=== PATIENT | male | born 1955 | race Caucasian/White ===

== ENCOUNTER 2018-08-18 22:28 | Inpatient (IN) | payer OTHER ==
[~2018-08-18] VITALS: Ht 170.2 cm; Wt 90.7 kg
--- NOTE | 2018-08-18 23:00 | NUR ---
REPORT RECEIVED FROM [facility] NURSE ROBB UGALDE. PT IN STABLE CONDITION. AAOX4. PT HAD CONTINUOUS CHEST PAIN THAT STARTED LAST NIGHT FOLLOWED BY NAUSEA AND SOB. PT HAS A HX OF MYOCARDIAL INFARCTION 5 YEARS AGO, HTN, DM, HYPERLIPIDEMIA, DEPRESSION. PT HAD AN EKG DONE AT [facility]. TROPONIN WAS NEGATIVE. PT RUNS BRADYCARDIA BETWEEN 45-55. PT IS ON ROOM AIR. PT HAS A R AC 20G SL THAT IS PATENT AND INTACT. PT ALSO HAD FLU VACCINATION DURING HIS [facility] VISIT. ALLERGIC TO PENICILLIN. PT RECEIVED ATIVAN AT 2214.
[2018-08-19] VITALS: BP 124/63
--- NOTE | 2018-08-19 | NUR ---
REPORT RECEIVED FROM [facility] AT BEDSIDE. PT IN STABLE CONDITION. AAOX4. INTRODUCED SELF TO PT. BOARD UPDATED. IV SITE R AC 20G SL PATENT AND INTACT. SKIN WARM, DRY, AND INTACT WITH NO OPEN WOUNDS. NO COMPLAINTS OF SOB. NO COMPLAINTS OF PAIN. PT AMBULATORY. BED LOCKED IN LOW POSITION. CALL GAMBOA WITHIN REACH. SAFETY MEASURES IN PLACE. PT HAD RECEIVED MORPHINE, ZOFRAN, AND ATIVAN FROM [facility].
[2018-08-19] MEDS ORDERED: INSULIN LISPRO SLIDING SCALE 100 UNITS/ML VIAL SUBQ PRN (00:15)
[2018-08-19] MEDS ORDERED: DEXTROSE 50% 50 ML SYR IVP PRN (00:15)
[2018-08-19] MEDS ORDERED: ACETAMINOPHEN 325 MG TAB PO PRN (00:15)
[2018-08-19] MEDS ORDERED: ONDANSETRON 4 MG/2 ML VIAL IVP PRN (00:15)
[2018-08-19] MEDS ORDERED: CARV3.12 PO (01:09)
[2018-08-19] MEDS ORDERED: LOVA40TA4 PO (01:09)
[2018-08-19] MEDS ORDERED: METF500T PO (01:09)
[2018-08-19] MEDS ORDERED: ATI.5 PO (01:09)
[2018-08-19] MEDS ORDERED: LORA10TA19 PO (01:09)
[2018-08-19] MEDS ORDERED: NITR0.4T2 SL (01:12)
[2018-08-19] MEDS ORDERED: LORATADINE 10 MG TAB PO PRN (01:25)
[2018-08-19] MEDS ORDERED: LORazepam 0.5 MG TAB PO PRN (01:25)
--- NOTE | 2018-08-19 02:30 | NUR ---
PT SLEEPING COMFORTABLY IN BED. NO S/S OF DISTRESS NOTED. NO PAIN. NO SOB. WILL CONTINUE TO MONITOR.
[2018-08-19 04:00] VITALS: BP 108/57
--- NOTE | 2018-08-19 05:00 | NUR ---
PT SLEEPING COMFORTABLY. NO S/S OF DISTRESS NOTED.
[2018-08-19] MEDS: BLOOD GLUCOSE MONITORING 1 DEV DEV FS SCH ×4 (06:53→20:25)
--- NOTE | 2018-08-19 06:53 | NUR ---
BS 91. NO INSULIN COVERAGE NEEDED.
--- NOTE | 2018-08-19 07:05 | NUR ---
REPORT GIVEN TO AM NURSE AT BEDSIDE. PT IN STABLE CONDITION.
--- NOTE | 2018-08-19 07:06 | NUR ---
RECEIVED REPORT FROM NIGHT NURSE. PT SITTING UP IN BED, RESTING COMFORTABLY. SAFETY MEASURE IN PLACE. WILL CONTINUE TO MONITOR.
--- NOTE | 2018-08-19 07:07 | NUR ---
PT SITTING UP IN BED. RESPIRATIONS EVEN AND UNLABORED. SKIN INTACT. LUNGS CTA BILATERAL. DENIES ANY CHEST PAIN AT THIS TIME. IV SITE INTACT, PATENT, ON SALINE LOCK. REVIEWED PLAN OF CARE WITH PT, PT UNDERSTANDS REVIEW. CALL LIGHT AT BEDSIDE. SAFETY MEASURES IN PLACE. WILL CONTINUE TO MONITOR.
[2018-08-19 07:30] LABS: ANION GAP 8.5 (8-16); CARBON DIOXIDE 33.2 mmol/L (21-32); CREATININE 1.1 mg/dL (0.7-1.3); POTASSIUM 3.7 mmol/L (3.5-5.1)
[2018-08-19 07:37] LABS: BASOPHILS % (AUTO) 0.6 % (0.0-2.0); EOSINOPHILS # (AUTO) 0.2 K/uL (0-0.4); EOSINOPHILS % (AUTO) 2.7 % (0.0-4.0); HEMATOCRIT 37.5 % (36-52); HEMOGLOBIN 12.6 g/dL (12.0-18.0); LYMPHOCYTES # (AUTO) 2.3 K/uL (2.0-11.5); LYMPHOCYTES % (AUTO) 30.2 % (20.5-51.1); MEAN CORPUSCULAR HEMOGLOBIN 28 pg (27-31); MEAN CORPUSCULAR HGB CONC 34 g/dL (33-37); MEAN CORPUSCULAR VOLUME 83.5 fL (80-94); MONOCYTES # (AUTO) 0.6 K/uL (0.8-1.0); MONOCYTES % (AUTO) 7.5 % (1.7-9.3); NEUTROPHILS # (AUTO) 4.5 K/uL (1.8-7.7); PLATELET COUNT (AUTO) 220 K/uL (140-450); RED BLOOD CELL COUNT(AUTO) 4.49 MIL/uL (4.20-6.10); RED CELL DISTRIBUTION WIDTH 13.3 % (11.6-13.7); WHITE BLOOD COUNT (AUTO) 7.7 K/uL (4.8-10.8)
[2018-08-19 08:00] VITALS: BP 132/70
[2018-08-19] MEDS: CARVEDILOL 3.125 MG TAB PO SCH ×2 (09:00→20:25)
[2018-08-19] MEDS: metFORMIN 500 MG TAB PO SCH (09:21)
[2018-08-19] MEDS: ECOTRIN 81 MG TABEC PO SCH (09:22)
--- NOTE | 2018-08-19 09:25 | NUR ---
PT LYING IN BED. ISSUED SCHEDULED MEDICATIONS. PT DENIES ANY PAIN AT THIS TIME. WILL CONTINUE TO MONITOR.
--- NOTE | 2018-08-19 11:30 | NUR ---
PATIENT LYING DOWN IN BED SLEEPING, AROUSABLE BY VOICE. NO DISTRESS NOTED. CONDITION UNCHANGED. WILL CONTINUE TO MONITOR.
[2018-08-19 12:22] VITALS: BP 126/68
--- NOTE | 2018-08-19 13:50 | NUR ---
PATIENT SITTING IN BED ON HIS PHONE. CONDITION UNCHANGED. DENIES ANY PAIN. WILL CONTINUE TO MONITOR.
--- NOTE | 2018-08-19 14:30 | NUR ---
DR. MUNIZ AT BEDSIDE REVIEWING PLAN OF CARE WITH PATIENT. WILL CONTINUE TO MONITOR.
[2018-08-19 16:00] VITALS: BP 120/66
[2018-08-19] MEDS: ISOSORBIDE MONONITRATE 30 MG TABER PO SCH (17:53)
--- NOTE | 2018-08-19 17:54 | NUR ---
PT SITTING IN BED EATING DINNER. SCHEDULED MEDICATION GIVEN. PT DENIES ANY PAIN AT THIS TIME. WILL CONTINUE TO MONITOR.
[2018-08-19] MEDS ORDERED: ISOSORBIDE MONONITRATE 30 MG TABER PO ONE (18:00)
--- NOTE | 2018-08-19 18:30 | NUR ---
PATIENT USED BATHROOM AND BACK TO BED. NO DISTRESS NOTED. CONDITION UNCHANGED. WILL CONTINUE TO MONITOR.
--- NOTE | 2018-08-19 19:20 | NUR ---
GAVE PT REPORT TO NIGHT NURSE. PT IN STABLE POSITION.
--- NOTE | 2018-08-19 19:21 | NUR ---
RECEIVED REPORT FROM [facility] NURSE JOSE-RN AT BEDSIDE. PT RESTING IN BED. AOX4, AMBULATORY, ON ROOM AIR WITH IV SITE ON RIGHT AC #20G-SL. SKIN INTACT. DISCUSSED PLAN OF CARE AND PT VERBALIZED UNDERSTANDING. NO S/S OF RESPIRATORY DISTRESS OR DISCOMFORT NOTED AT THIS TIME. BED IN LOWEST POSITION, BED BREAKS ON AND BOTH SIDE RAILS UP. BED SIDE TABLE AND CALL LIGHT ARE WITHIN REACH. NO S/S OF RESPIRATORY DISTRESS OR DISCOMFORT NOTED AT THIS TIME. WILL CONTINUE TO MONITOR.
[2018-08-19 20:00] VITALS: BP 108/54
--- NOTE | 2018-08-19 20:00 | NUR ---
VITAL SIGNS TAKEN AND TOLERATED WELL. NO S/S OF RESPIRATORY DISTRESS OR DISCOMFORT NOTED AT THIS TIME. WILL CONTINUE TO MONITOR.
--- NOTE | 2018-08-19 20:00 | NUR ---
BLOOD GLUCOSE 116- NO INSULIN COVERAGE NEEDED.
--- NOTE | 2018-08-19 21:00 | NUR ---
SCHEDULED MEDICATION NOT GIVEN FOR DECREASED B/P. PT AWARE AND AGREED. NO S/S OF RESPIRATORY DISTRESS OR DISCOMFORT NOTED AT THIS TIME. WILL CONTINUE TO MONITOR.
--- NOTE | 2018-08-19 22:00 | NUR ---
PT SLEEPING AT THIS TIME. NO S/S OF RESPIRATORY DISTRESS OR DISCOMFORT NOTED AT THIS TIME. WILL CONTINUE TO MONITOR.
[2018-08-20] VITALS: BP 99/46
--- NOTE | 2018-08-20 | NUR ---
VITAL SIGNS TAKEN AND TOLERATED WELL. LOW B/P NOTED. NO S/S OF RESPIRATORY DISTRESS OR DISCOMFORT NOTED AT THIS TIME. WILL CONTINUE TO MONITOR.
--- NOTE | 2018-08-20 02:00 | NUR ---
PT CONTINUE TO SLEEP. NO S/S OF RESPIRATORY DISTRESS OR DISCOMFORT NOTED AT THIS TIME. WILL CONTINUE TO MONITOR.
[2018-08-20 04:00] VITALS: BP 100/49
--- NOTE | 2018-08-20 04:00 | NUR ---
VITAL SIGNS TAKEN AND TOLERATED WELL. NO S/S OF RESPIRATORY DISTRESS OR DISCOMFORT NOTED AT THIS TIME. WILL CONTINUE TO MONITOR.
--- NOTE | 2018-08-20 06:00 | NUR ---
PT CONTINUES TO SLEEP. NO S/S OF RESPIRATORY DISTRESS OR DISCOMFORT NOTED AT THIS TIME. WILL CONTINUE TO MONITOR.
--- NOTE | 2018-08-20 07:16 | NUR ---
PT CONTINUES TO SLEEP. NO S/S OF RESPIRATORY DISTRESS OR DISCOMFORT NOTED AT THIS TIME. WILL CONTINUE TO MONITOR.
[2018-08-20] MEDS: BLOOD GLUCOSE MONITORING 1 DEV DEV FS SCH ×4 (07:20→20:33)
--- NOTE | 2018-08-20 07:20 | NUR ---
BLOOD GLUCOSE 108- NO INSULIN COVERAGE NEEDED
--- NOTE | 2018-08-20 07:30 | NUR ---
RECEIVED PT ON BED AAOX4. NO SOB NOTED. NO C/O PAIN AT THIS TIME. IV TO RT AC HAND PATENT AND INTACT. CHEST DIMINISHED AIR ENTRY TO THE BASES OTHERWISE CLEAR. ABDOMEN SOFT, BOWEL SOUNDS PRESENT. NO EDEMA NOTED. INSTRUCTED PT TO CALL FOR ASSISTANCE, CALL LIGHT WITHIN REACH. PT VERBALIZED UNDERSTANDING.
[2018-08-20 08:20] VITALS: BP 112/73
[2018-08-20] MEDS ORDERED: AMLO5TAB PO (08:29)
[2018-08-20] MEDS ORDERED: ASPI81CT89 PO (08:29)
[2018-08-20] MEDS ORDERED: ISOS30TE35 PO (08:29)
--- NOTE | 2018-08-20 08:37 | NUR ---
PATIENT HAS BEEN SCREENED AND CATEGORIZED HIGH NUTRITION RISK. PATIENT WILL BE SEEN WITHIN 1-2 DAYS OF ADMISSION. 08/20/[address]
[2018-08-20 08:39] LABS: CHOL/HDL RATIO 4.7 (1-4.5)
[2018-08-20] MEDS: ECOTRIN 81 MG TABEC PO SCH (09:05)
[2018-08-20] MEDS: metFORMIN 500 MG TAB PO SCH (09:06)
[2018-08-20] MEDS: CARVEDILOL 3.125 MG TAB PO SCH ×2 (09:07→20:33)
--- NOTE | 2018-08-20 09:20 | NUR ---
URINE SPECIMEN COLLECTED AND SENT TO LAB FOR UDS.
[2018-08-20] MEDS: HYDROcodone/APAP 5/325 MG 1 TAB TAB PO PRN ×2 (11:38→17:51)
[2018-08-20 12:00] VITALS: BP 123/57
[2018-08-20] MEDS ORDERED: amLODIPine 5 MG TAB PO SCH ×3 (12:00→12:48)
--- NOTE | 2018-08-20 14:10 | NUR ---
08/20/18 RD INITIAL ASSESSMENT COMPLETED PLEASE REFER TO NUTRITION ASSESSMENT UNDER CARE ACTIVITY FOR ESTIMATED NUTRITIONAL NEEDS. 1. CONTINUE CARDIAC AND CCHO 60 GM DIET TOLERATED 2. RD PROVIDED NUTRITION EDUCATION ON CARDIAC DIET 3. RD TO FOLLOW-UP 5-7 DAYS, LOW RISK [address]ITY [address] RD
[2018-08-20 15:02] LABS: BARBITURATE, URINE NEG. ng/ml (NEG <=200); BENZODIAZEPINE, URINE NEG. ng/mL (NEG <=200); CANNABINOID, URINE NEG. ng/mL (NEG <=50); COCAINE, URINE NEG. ng/mL (NEG <=300); OPIATE, URINE NEG. ng/mL (NEG <=2000); PHENCYCLIDINE SCREEN,URINE NEG. ng/mL (NEG <=25)
--- NOTE | 2018-08-20 15:15 | NUR ---
PT AWAKE. NO SOB NOTED. NO C/O PAIN AT THIS TIME. ENDORSED TO ADALBERTO-RN FOR CONTINUITY OF CARE.
--- NOTE | 2018-08-20 15:16 | NUR ---
RECEIVED BEDSIDE REPORT FROM TRAM OBREGON. PATIENT IS AWAKE, ALERT AND ORIENTEDX4. NO SIGNS OF DISTRESS ON RA. NO COMPLAINTS OF PAIN AT THIS TIME. IV ON R AC 20 SALINE LOCK. CLEAN, DRY AND INTACT. PATIENT AMBULATES. BED IN LOW POSITION. CALL LIGHT WITHIN REACH. WILL CONTINUE TO MONITOR THE PATIENT.
--- NOTE | 2018-08-20 15:26 | NUR ---
ADMISSION CHART REVIEW DONE INITIAL REVIEW FAXED TO [facility] [phone] PHONE TRE [phone]
[2018-08-20 15:30] VITALS: BP 119/72
[2018-08-20] MEDS: ISOSORBIDE MONONITRATE 30 MG TABER PO SCH (17:51)
--- NOTE | 2018-08-20 17:52 | NUR ---
ADMINISTERED ORDERED MEDS AND PRN PAIN MEDS. PATIENT TOLERATED WELL, NO SIGNS OF DISTRESS. BED IN LOW POSITION. CALL LIGHT WITHIN REACH, WILL CONTINUE TO MONITOR
--- NOTE | 2018-08-20 19:05 | NUR ---
GAVE BEDSIDE REPORT TO OIL BURNER REPAIRER NURSE. PATIENT ENDORSED IN STABLE CONDITION
--- NOTE | 2018-08-20 19:10 | NUR ---
RECEIVED PT AWAKE, TOLERABLE PAIN AT THIS TIME, WILL GIVE PRN MEDICATION WHEN DUE, VITAL SIGNS STABLE, SINUS RHYTHM ON TELE, PLAN OF CARE DISCUSS, SAFETY MEASURES IN PLACE, CALL LIGHT WITHIN REACH.
[2018-08-20 20:00] VITALS: BP 133/65
[2018-08-20] MEDS: NITROGLYCERIN 0.4 MG TAB SL PRN ×2 (20:49→20:56)
--- NOTE | 2018-08-20 20:50 | NUR ---
DR MUNIZ IS HERE, PT COMPLAINING OF CHEST PAIN 06/[address] MUNIZ WAS TALKING TO HIM, DR MUNIZ STATED TO GIVE NITRO SL NOW, BP-119/72, HR-71, NITRO SL GIVEN, MONITORED CLOSELY.
--- NOTE | 2018-08-20 20:56 | NUR ---
STILL WITH CHEST PAIN 06/15, 2ND DOSE OF NITRO SL GIVEN, BP-107/55, HR-71, STAT EKG DONE BY RT, EKG WITH NORMAL SINUS RHYTHM READING, MONITORED CLOSELY. Addendum: 08/20/18 at 2137 by Rahul Sequeira RN BP-113/63, HR-66
--- NOTE | 2018-08-20 21:10 | NUR ---
PT STILL WITH CHEST PAIN 06/15, DR MUNIZ WITH ORDER FOR TORADOL IVP, BP-107/55, HR-71, TORADOL IVP GIVEN, MONITORED CLOSELY.
[2018-08-20] MEDS ORDERED: KETOROLAC 15 MG/ML VIAL ONE (21:13)
[2018-08-20] MEDS ORDERED: KETOROLAC 15 MG/ML VIAL IVP ONE (21:30)
--- NOTE | 2018-08-20 21:48 | NUR ---
CHEST PAIN 03/15 AT THIS TIME, PT DOESN'T WANT TO GO HOME TONIGHT DUE TO EPISODES OF CHEST PAIN, CALLED DR MUNIZ AND MADE AWARE, STATED BOYD FOR PT STAY TONIGHT AND ORDERED TORADOL PRN MEDICATION FOR CHEST PAIN, PT MADE AWARE AND VERBALIZED UNDERSTANDING.
[2018-08-20] MEDS ORDERED: KETOROLAC 30 MG/ML VIAL IVP PRN (21:50)
--- NOTE | 2018-08-21 | NUR ---
PT SLEEPING, EASILY AROUSABLE, VITAL SIGNS TAKEN, BP ON THE LOW SIDE BUT STABLE, DENIES ANY PAIN, CONTINUE TO MONITOR CLOSELY.
[2018-08-21 00:20] VITALS: BP 91/49
[2018-08-21 03:40] VITALS: BP 86/57
--- NOTE | 2018-08-21 03:40 | NUR ---
PT SLEEPING, EASILY AROUSABLE, VITAL SIGNS TAKEN, BP-86/57, HR-56, DENIES CHEST PAIN, PAGED DR THOMPSON WITH NEW ORDER, STARTED ON IVF OF NS AT 80ML/H ORDERED, MONITORED CLOSELY.
[2018-08-21] MEDS ORDERED: NACL 0.9% 1,000 ML IV SCH (04:00)
--- NOTE | 2018-08-21 06:20 | NUR ---
PT SITTING ON SIDE OF BED WATCHING MOVIES ON HIS LAPTOP, VITAL SIGNS RECHECKED:BP-113/77, HR-61, SAT-97%, DENIES ANY PAIN, NO SOB NOTED.
--- NOTE | 2018-08-21 07:10 | NUR ---
PT AWAKE, NO SIGNS OF DISTRESS, REPORT GIVEN TO RN SABAS FOR CONTINUITY OF CARE.
[2018-08-21] MEDS: BLOOD GLUCOSE MONITORING 1 DEV DEV FS SCH ×2 (07:34→12:23)
[2018-08-21 08:00] VITALS: BP 128/71
[2018-08-21] MEDS: CARVEDILOL 3.125 MG TAB PO SCH (09:00)
[2018-08-21] MEDS: ECOTRIN 81 MG TABEC PO SCH (09:29)
[2018-08-21] MEDS: metFORMIN 500 MG TAB PO SCH (09:29)
--- NOTE | 2018-08-21 09:35 | NUR ---
ECHO ON GOING AT THE BEDSIDE.
--- NOTE | 2018-08-21 12:00 | NUR ---
DISCHARGE INSTRUCTIONS AND PRESCRIPTIONS GIVEN TO PT WHICH VERBALIZED FULL UNDERSTANDING OF THE INSTRUCTIONS AND THE NEED TO FOLLOW UP WITH PCP AND SOCIAL WORKER IN 7 DAYS. ARM BANDS AND IV REMOVED, CANNULA TIP INTACT.
--- NOTE | 2018-08-21 12:03 | NUR ---
FAXED CONCURRENT REVIEW TO [facility] [phone] PHONE TRE [phone] Addendum: 08/21/18 at 1233 by Vania Gibson FAXED ALSO DISCHARGE SUMMARY AND HOSPITALIST NOTES AND DISCHARGE INSTRUCTIONS.
--- NOTE | 2018-08-21 12:20 | NUR ---
PT ESCORTED TO THE FRONT LOBBY IN STABLE CONDITION. AMBULATORY. NO COMPLAINTS MADE. PT IS D/C HOME WITH DAUGHTER.
== END 2018-08-21 12:20 | disposition home or self-care (01) | DRG 203 ==
LOC: MTU 08-19 00:05
PROVIDERS: ADMIT Internal Medicine; ATTEND Internal Medicine
DX: M94.0 Chondrocostal junction syndrome [Tietze] (principal); I11.9 Hypertensive heart disease without heart failure; E11.9 Type 2 diabetes mellitus without complications; R07.89 Other chest pain; I25.10 Atherosclerotic heart disease of native coronary artery without angina pectoris; I25.2 Old myocardial infarction; E78.5 Hyperlipidemia, unspecified; E66.9 Obesity, unspecified; Z68.31 Body mass index [BMI] 31.0-31.9, adult; Z90.49 Acquired absence of other specified parts of digestive tract; Z98.49 Cataract extraction status, unspecified eye; Z87.891 Personal history of nicotine dependence; Z88.0 Allergy status to penicillin; K21.9 Gastro-esophageal reflux disease without esophagitis; G47.33 Obstructive sleep apnea (adult) (pediatric); Z82.49 Family history of ischemic heart disease and other diseases of the circulatory system; T40.5X5A Adverse effect of cocaine, initial encounter; Y92.89 Other specified places as the place of occurrence of the external cause; I34.0 Nonrheumatic mitral (valve) insufficiency
CPT/HCPCS: 36415; 80048; 80305; 82948; 83036; 83880; 84484; 85025; 87081; 93005; 93308; J1815; J1885; J7030

== ENCOUNTER 2019-05-13 18:50 | Emergency (ER) | payer OTHER ==
[~2019-05-13] VITALS: Ht 175.3 cm; Wt 102.7 kg
[~2019-05-13 18:50] MED LIST: ASPI-1718 PO; ATI.5 PO; CARV3.12 PO; LORA10TA19 PO; LOVA40TA4 PO; METF500T PO; NITR0.4T2 SL
[2019-05-13 18:58] VITALS: BP 149/84
--- NOTE | 2019-05-13 19:15 | NUR ---
C/O LLQ ABD PAIN RADIATING TO THE LEFT LOWER BACK 7/10 AND DULL X4 DAYS ACCOMPANIED BY BLOATING, NAUSEA AND INTERMITTENT DIARRHEA. PT STATES HE TOOK PEPTO BISMOL WHICH PROVIDED MINIMAL RELIEF. DENIES FEVER, VOMITING AND LOSS OF APPETITE. BOWEL SOUNDS ACTIVE X4, LBM TODAY, NOT DIARRHEA, ABD SOFT/PUFFY AND TENDER TO PALPATION. PT REPORTS BEING TESTED FOR H.PYLORI BY HIS PCP BUT DOES NOT KNOW WHAT THE RESULT WAS. BED IN LOW POSITION, SIDE RAIL UP X1, PT PLACED IN GOWN. DR QUINN AT BEDSIDE EVALUATING PT.
--- NOTE | 2019-05-13 19:33 | NUR ---
PT RETURN FROM CT
[2019-05-13 19:34] LABS: BASOPHILS # (AUTO) 0.1 K/uL (0.00-0.22); BASOPHILS % (AUTO) 0.6 % (0.0-2.0); EOSINOPHILS # (AUTO) 0.3 K/uL (0-0.4); EOSINOPHILS % (AUTO) 3.2 % (0.0-4.0); HEMATOCRIT 39.7 % (36-52); HEMOGLOBIN 13.1 g/dL (12.0-18.0); LYMPHOCYTES # (AUTO) 2.8 K/uL (2.0-11.5); LYMPHOCYTES % (AUTO) 26.3 % (20.5-51.1); MEAN CORPUSCULAR HEMOGLOBIN 28 pg (27-31); MEAN CORPUSCULAR HGB CONC 33 g/dL (33-37); MONOCYTES # (AUTO) 0.9 K/uL (0.8-1.0); MONOCYTES % (AUTO) 8.2 % (1.7-9.3); NEUTROPHILS # (AUTO) 6.5 K/uL (1.8-7.7); NEUTROPHILS % (AUTO) 61.7 % (42.2-75.2); PLATELET COUNT (AUTO) 337 K/uL (140-450); RED BLOOD CELL COUNT(AUTO) 4.67 MIL/uL (4.20-6.10); RED CELL DISTRIBUTION WIDTH 13.5 % (11.6-13.7); WHITE BLOOD COUNT (AUTO) 10.5 K/uL (4.8-10.8)
[2019-05-13] MEDS ORDERED: KETOROLAC 15 MG/ML VIAL IM ONE (19:40)
[2019-05-13 19:41] LABS: APPEARANCE,URINE CLEAR (CLEAR); BILIRUBIN,URINE NEGATIVE (NEGATIVE); BLOOD, URINE 3+ (NEGATIVE); COLOR,URINE YELLOW (YELLOW); LEUKOCYTE ESTERASE ,URINE NEGATIVE (NEGATIVE); NITRITE, URINE NEGATIVE (NEGATIVE); UGLUCOSE NEGATIVE (NEGATIVE)
[2019-05-13] MEDS ORDERED: KETOROLAC 15 MG/ML VIAL ONE (19:50)
[2019-05-13 20:07] LABS: ANION GAP 12.4 (8-16); CARBON DIOXIDE 29.9 mmol/L (21-32); CREATININE 1.4 mg/dL (0.7-1.3); POTASSIUM 4.3 mmol/L (3.5-5.1)
[2019-05-13 20:12] LABS: ALBUMIN 3.7 g/dL (3.4-5.0); TOTAL BILIRUBIN 0.3 mg/dL (0.0-1.0)
[2019-05-13] MEDS ORDERED: metroNIDAZOLE 500 MG TAB PO ONE (20:20)
[2019-05-13] MEDS ORDERED: CIPROFLOXACIN 250 MG TAB PO ONE (20:20)
[2019-05-13 20:30] LABS: RBC,URINE 11-20 (MOD) /HPF (0-5); WBC,URINE 0-5 /HPF (0-5)
[2019-05-13 20:52] VITALS: BP 135/89
--- NOTE | 2019-05-13 20:52 | NUR ---
Patient discharged with v/s stable. Written and verbal after care instructions given and explained. Patient alert, oriented and verbalized understanding of instructions. Ambulatory with steady gait. All questions addressed prior to discharge. ID band removed. Patient advised to follow up with PMD. Rx of CIPRO & FLAGYL given. Patient educated on indication of medication including possible reaction and side effects. Opportunity to ask questions provided and answered.
== END 2019-05-13 20:52 | disposition home or self-care (01) ==
LOC: MED 18:50
DX: N17.9 Acute kidney failure, unspecified (principal); K57.92 Diverticulitis of intestine, part unspecified, without perforation or abscess without bleeding; E11.9 Type 2 diabetes mellitus without complications; I10 Essential (primary) hypertension; E78.5 Hyperlipidemia, unspecified; I25.2 Old myocardial infarction; Z98.890 Other specified postprocedural states; Z79.84 Long term (current) use of oral hypoglycemic drugs; Z79.899 Other long term (current) drug therapy; Z88.0 Allergy status to penicillin
CPT/HCPCS: 36415; 74176; 80053; 81001; 83690; 85025; 96372; 99284; J1885

== ENCOUNTER 2019-06-17 21:48 | Emergency (ER) | payer OTHER ==
[~2019-06-17] VITALS: Ht 175.3 cm; Wt 95.3 kg
[2019-06-17 21:52] VITALS: BP 150/83
--- NOTE | 2019-06-17 21:54 | NUR ---
TO LOBBY A/W BED AMBULATORY
--- NOTE | 2019-06-17 22:00 | NUR ---
PT AMBULATED TO BED
--- NOTE | 2019-06-17 22:20 | NUR ---
63/M PRESENTED TO ER. AMBULATORY. STEADY GAIT. C/O R SIDE TESTICULAR PAIN RADIATING TO GROIN AND LOWER BACK. 7/10 CONSTANT PRESSURE. SINCE 3 DAYS AGO. SAYS HAS SLIGHT PAIN WHEN URINATING. NO SWELLING. NO FEVER. NO CHILLS. STATES HAD DIARREA TODAY. 7 BOWEL MOVEMENTS. NO N/V. HX HTN, DM, HLD, CHOLECYSTECTOMY, DC 6 YEARS AGO, RESOLVED INTERMEDIATE SYPHILLIS. RX METFORMIN, NITRO, ASPIRIN, LIPITOR. WILL CONTINUE TO MONITOR.
--- NOTE | 2019-06-18 00:30 | NUR ---
PT SLEEPING IN GURNEY. EASILY AROUSABLE. NO COMPLAINTS AT THIS TIME. NO DISTRESS NOTED. MAKE NEEDS KNOWN. WILL KIYA DELUNA MONITOR
[2019-06-18] MEDS ORDERED: ACETAMINOPHEN 325 MG TAB PO ONE (00:50)
--- NOTE | 2019-06-18 02:30 | NUR ---
EVEN UNLABORED BREATHING NOTED. NO SIGNS OF DISTRESS. NO PAIN NOTED.
[2019-06-18 04:20] VITALS: BP 150/83
--- NOTE | 2019-06-18 04:20 | NUR ---
Patient discharged with v/s stable. Written and verbal after care instructions given and explained. Patient verbalized understanding. Ambulatory with steady gait. All questions addressed prior to discharge. Advised to follow up with PMD.
== END 2019-06-18 04:20 | disposition home or self-care (01) ==
LOC: MED 21:48
DX: R10.30 Lower abdominal pain, unspecified (principal); N50.811 Right testicular pain; I10 Essential (primary) hypertension; E11.9 Type 2 diabetes mellitus without complications; I25.2 Old myocardial infarction; E78.00 Pure hypercholesterolemia, unspecified; Z90.49 Acquired absence of other specified parts of digestive tract; Z79.84 Long term (current) use of oral hypoglycemic drugs; Z79.899 Other long term (current) drug therapy; Z79.82 Long term (current) use of aspirin; Z88.0 Allergy status to penicillin
CPT/HCPCS: 81002; 99283

== ENCOUNTER 2019-12-27 17:45 | Inpatient (IN) | payer OTHER ==
[~2019-12-27] VITALS: Ht 175.3 cm; Wt 101.6 kg
[~2019-12-27 17:45] MED LIST changes: -ASPI-1718 PO; +ASPI-1822 PO
[2019-12-27 17:58] VITALS: BP 150/71
--- NOTE | 2019-12-27 18:25 | NUR ---
PT AMB TO BED 7 WITH STEADY GAIT
--- NOTE | 2019-12-27 18:38 | NUR ---
64 Y/M PRESENTS TO ED WITH CHEST PRESSURE SINCE 3AM THIS MORNING, PT WAS AWOKEN FROM HIS SLEEP FROM CP THAT ALSO PRESENTED WITH R FACIAL NUMBNESS. PT REPORTS BLURRED VISION. PATIENT REPORTS PAIN CONSTANT PRESSURE 7/10. HAS HX OF AZ 8 YEARS AGO, STATES "THIS FEELS DIFFERENT, LAST TIME MY PAIN WAS SHARP. PT CO SOB. PT REPORTS HE HAS NOT TAKEN BP MEDICATIONS FOR 6 MONTHS "I DONT LIKE THE WAY THEY MAKE ME FEEL". DENIES ALVAREZ OR NAUSEA. RR EVEN AND UNLABORED, A&O X 4. HX- HYPERCHOLESTEROLEMIA, HTN, CM, [place] ALLERGIES- PENICILLIN RX- NITRO, METFORMIN, LIPITOR
--- NOTE | 2019-12-27 18:53 | NUR ---
PT AMBULATED TO BATHROOM WITH STEADY GAIT.
--- NOTE | 2019-12-27 18:53 | NUR ---
STAT LABS DRAWN AND URINE COLLECTED AND SENT TO LAB
[2019-12-27 19:07] LABS: BASOPHILS # (AUTO) 0.1 K/uL (0.00-0.22); BASOPHILS % (AUTO) 0.8 % (0.0-2.0); EOSINOPHILS # (AUTO) 0.4 K/uL (0-0.4); EOSINOPHILS % (AUTO) 3.7 % (0.0-4.0); HEMOGLOBIN 13.4 g/dL (12.0-18.0); LYMPHOCYTES # (AUTO) 3.8 K/uL (2.0-11.5); LYMPHOCYTES % (AUTO) 39.3 % (20.5-51.1); MEAN CORPUSCULAR HEMOGLOBIN 28 pg (27-31); MEAN CORPUSCULAR HGB CONC 34 g/dL (33-37); MEAN CORPUSCULAR VOLUME 82.8 fL (80-94); MONOCYTES # (AUTO) 0.7 K/uL (0.8-1.0); MONOCYTES % (AUTO) 7.8 % (1.7-9.3); NEUTROPHILS # (AUTO) 4.6 K/uL (1.8-7.7); NEUTROPHILS % (AUTO) 48.4 % (42.2-75.2); PLATELET COUNT (AUTO) 273 K/uL (140-450); RED BLOOD CELL COUNT(AUTO) 4.83 MIL/uL (4.20-6.10); RED CELL DISTRIBUTION WIDTH 13.2 % (11.6-13.7); WHITE BLOOD COUNT (AUTO) 9.6 K/uL (4.8-10.8)
--- NOTE | 2019-12-27 19:15 | NUR ---
XR AT BEDSIDE.
--- NOTE | 2019-12-27 19:20 | NUR ---
REPORT RECIVED FROM KATHLEEN UGALDE. PT ON MONITOR. VSS. PT AAO X 4. RESPIRATIONS ARE EVEN AND UNLABORED. PAIN HAS C/O 8/10 CHEST PAIN, UNPROVOKED. "PT STATES IT FEELS LIKE A PRESSURE." PT ADMITS TO HAVING NITRO AT HOME BUT DID NOT TAKE IT THIS TIME.
[2019-12-27 19:22] LABS: ALBUMIN 3.5 g/dL (3.4-5.0); ANION GAP 10.1 (8-16); CARBON DIOXIDE 30.7 mmol/L (21-32); CREATININE 1.2 mg/dL (0.6-1.3); POTASSIUM 3.8 mmol/L (3.5-5.1); TOTAL BILIRUBIN 0.3 mg/dL (0.0-1.0)
--- NOTE | 2019-12-27 19:22 | NUR ---
Pt report given to TRAM FRASER. Transfer of care at this time.
[2019-12-27] MEDS ORDERED: NITROGLYCERIN 0.4 MG TAB SL ONE (19:40)
[2019-12-27] MEDS ORDERED: ASPIRIN 325 MG TAB PO ONE (19:40)
--- NOTE | 2019-12-27 20:25 | NUR ---
ASA 325 MG AND NITRO 0.4 MG. GIVEN @ 1950. PT REASSESSED AND STATED THAT CHEST PAIN HAS REDUCED FROM 07/16 TO 5. PT RESPIRATIONS ARE EVEN AND UNLABORED. PT ON 2L/MIN NC. O2SAT @ 98%. PT AAO X 4. VSS. PT RESTING IN BED TLING ON THE PHONE WITH FAMILY.
[2019-12-27] MEDS ORDERED: DEXT 5% /NACL 0.9% 1,000 ML IV SCH (20:43)
[2019-12-27] MEDS ORDERED: ZOLPIDEM 5 MG TAB PO PRN (20:45)
[2019-12-27] MEDS ORDERED: ONDANSETRON 4 MG/2 ML VIAL IM/IVP PRN (20:45)
[2019-12-27] MEDS ORDERED: DOCUSATE SODIUM 100 MG GELCAP PO PRN (20:45)
[2019-12-27] MEDS ORDERED: HYDROcodone/APAP 7.5/325 MG 1 TAB PO PRN (20:45)
[2019-12-27] MEDS ORDERED: guaiFENesin DM 200/20 MG-10 ML 10 ML UDC PO PRN (20:45)
[2019-12-27] MEDS ORDERED: ACETAMINOPHEN 325 MG TAB PO PRN (20:45)
--- NOTE | 2019-12-27 21:00 | NUR ---
PT REASSESSED AND STATED THAT CHEST PAIN HAS REMAINED AT 5/10. PT STATES PAIN IS NON RADIATING AND FEELS LIKE A PRESSURE IN CHEST. PT RESPIRATIONS ARE EVEN AND UNLABORED. PT ON 2L/MIN NC. O2SAT @ 98%. PT AAO X 4. VSS. PT RESTING IN BED TALKING ON THE PHONE WITH FAMILY.
[2019-12-27 21:21] LABS: PROTHROMBIN TIME 9.1 secs (10.8-13.4)
--- NOTE | 2019-12-27 21:25 | NUR ---
Patient will be admitted to care of [facility]. Admited to [facility]. Will go to room 111B. Belongings list completed. Report to FARRUKH UGALDE.
[2019-12-27 21:30] VITALS: BP 110/60
--- NOTE | 2019-12-27 21:30 | NUR ---
RECIEVED PT FROM ER /[facility] , AAOX4 , W/ O2 INH.AT 2LPM/NC - 02 SAT WNL , C/O OF CHEST PAIN BUT BEARABLE AT THIS TIME HE SAID - JUST TOOK ASA AND NITRO AT THE ER , AMBULATES TO BED , IV SITE INTACT AND PATENT . ADMISSION ASSESSMENT DONE - MRSA SPECIMEN SENT TO LAB . POC DISCUISSED Addendum: 12/27/19 at 2329 by Shweta Barajas RN THE WORD DISCUISSED IN THE ABOVE NURSE'S NOTE IS TYPOGRAPHICALLY ERROR - INSTEAD OF DISCUSSED . Addendum: 12/27/19 at 2330 by Shweta Barajas RN PLAN OF CARE DISCUSSED AND VERBALIZE UNDERSTANDING - CALL LIGHT , URINAL WITHIN REACH , ON LITERACY COACH. PROVIDE SANDWICH AT BEDSIDE , WILL CONT. TO MONITOR.
[2019-12-27] MEDS ORDERED: INSULIN LISPRO SLIDING SCALE 100 UNITS/ML VIAL SUBQ PRN (22:55)
[2019-12-27] MEDS ORDERED: DEXTROSE 50% 50 ML SYR IVP PRN (22:55)
[2019-12-27] MEDS: CARVEDILOL 3.125 MG TAB PO SCH (22:55)
[2019-12-27] MEDS ORDERED: NITROGLYCERIN 0.4 MG TAB SL PRN (22:55)
[2019-12-27] MEDS ORDERED: KCL 20 MEQ/WATER INJ PREMIX 200 ML IV PRN (23:00)
[2019-12-27 23:32] LABS: APPEARANCE,URINE CLEAR (CLEAR); BILIRUBIN,URINE NEGATIVE (NEGATIVE); BLOOD, URINE 1+ (NEGATIVE); COLOR,URINE YELLOW (YELLOW); LEUKOCYTE ESTERASE ,URINE NEGATIVE (NEGATIVE); NITRITE, URINE NEGATIVE (NEGATIVE); UGLUCOSE NEGATIVE (NEGATIVE)
[2019-12-27] MEDS: NACL 0.9% 1,000 ML IV SCH (23:38)
[2019-12-27 23:46] LABS: BARBITURATE, URINE NEG. ng/ml (NEG <=200); BENZODIAZEPINE, URINE NEG. ng/mL (NEG <=200); CANNABINOID, URINE NEG. ng/mL (NEG <=50); COCAINE, URINE NEG. ng/mL (NEG <=300); OPIATE, URINE NEG. ng/mL (NEG <=2000); PHENCYCLIDINE SCREEN,URINE NEG. ng/mL (NEG <=25)
[2019-12-27 23:48] LABS: RBC,URINE 11-20 (MOD) /HPF (0-5); WBC,URINE 0-5 /HPF (0-5)
[2019-12-28] VITALS: BP 100/60
--- NOTE | 2019-12-28 00:05 | NUR ---
BP 100/60 , MD 61 - HOLD CARVEDILOL ORDERED BY BHANU .
--- NOTE | 2019-12-28 02:00 | NUR ---
MADE ROUNDS , NO S/S OF ACUTE DISTRESS NOTED AT THIS TIME , DENIES CHEST PAIN AT THIS TIME , WILL CONT. TO MONITOR - ON OPHTHALMIC PATHOLOGIST.CALL LIGHT WITHIN REACH.
[2019-12-28 04:00] VITALS: BP 105/60
--- NOTE | 2019-12-28 04:00 | NUR ---
MADE ROUNDS , RESTING ON BED COMFORTABLY , CARDIAC TRACING -SB 47 - DENIES ANY PAIN AT THIS TIME , BP 90/55 - HE SAID :'' I'M OK THAN I WAS . IVF INFUSING WELL - WILL CONT. TO MONITOR. CALL LIGHT WITHIN REACH.- WILL RE CHECK V/S.- CHARGE NURSE INFORMED.
[2019-12-28 05:53] LABS: ANION GAP 11.4 (8-16); CARBON DIOXIDE 25.7 mmol/L (21-32); CREATININE 1.1 mg/dL (0.6-1.3); POTASSIUM 4.1 mmol/L (3.5-5.1)
[2019-12-28] MEDS: BLOOD GLUCOSE MONITORING 1 DEV DEV FS SCH ×4 (06:10→20:17)
--- NOTE | 2019-12-28 06:15 | NUR ---
LATEST BP 90/60 , LATEST CARDIAC TRACING 50 -SB - COMFORTABLY RESTING ON BED , DENIES CHEST PAIN - VOIDED FREELY - INFORMED BHANU , WILL CONT. TO MONITOR - CALL LIGHT WITHIN REACH.
[2019-12-28 06:41] LABS: BASOPHILS # (AUTO) 0.1 K/uL (0.00-0.22); EOSINOPHILS # (AUTO) 0.3 K/uL (0-0.4); EOSINOPHILS % (AUTO) 4.7 % (0.0-4.0); HEMATOCRIT 36.7 % (36-52); HEMOGLOBIN 12.5 g/dL (12.0-18.0); LYMPHOCYTES # (AUTO) 2.4 K/uL (2.0-11.5); LYMPHOCYTES % (AUTO) 38.6 % (20.5-51.1); MEAN CORPUSCULAR HEMOGLOBIN 28 pg (27-31); MEAN CORPUSCULAR HGB CONC 34 g/dL (33-37); MONOCYTES # (AUTO) 0.5 K/uL (0.8-1.0); MONOCYTES % (AUTO) 7.4 % (1.7-9.3); NEUTROPHILS % (AUTO) 48.3 % (42.2-75.2); PLATELET COUNT (AUTO) 243 K/uL (140-450); RED BLOOD CELL COUNT(AUTO) 4.43 MIL/uL (4.20-6.10); RED CELL DISTRIBUTION WIDTH 13.4 % (11.6-13.7); WHITE BLOOD COUNT (AUTO) 6.3 K/uL (4.8-10.8)
--- NOTE | 2019-12-28 07:06 | NUR ---
PATIENT HAS BEEN SCREENED AND CATEGORIZED MODERATE NUTRITION RISK. PATIENT WILL BE SEEN WITHIN 3-5 DAYS OF ADMISSION. 12/30/19-01/01/20 MARIEL BRANCH MS, RDN
--- NOTE | 2019-12-28 07:15 | NUR ---
ENDORSED TO AM SHIFT FOR CONT. OF CARE - PT - STABLE CONDITION. Addendum: 12/28/19 at 0731 by Shweta Barajas RN ENDORSED TO JOSE DRUMMOND ABOUT U/A RESULT .
--- NOTE | 2019-12-28 07:16 | NUR ---
RECEIVED REPORT FROM NIGHT NURSE. PATIENT SITTING IN BED, AA&A x4. COOPERATIVE. RESPIRATIONS EVEN, UNLABORED, BREATHING TO ROOM AIR. NO CHEST PAIN NOTED. IV SITE CLEAN, DRY, AND INTACT INFUSING PER MD ORDERS. REVIEWED PLAN OF CARE WITH PATIENT, PATIENT VERBALIZED UNDERSTANDING. CALL LIGHT IN REACH, BED IN LOW POSITION. WILL CONTINUE TO MONITOR.
[2019-12-28 08:00] VITALS: BP 128/77
[2019-12-28 08:21] LABS: FREE T4 (FREE THYROXINE) 1.16 ng/dL (0.76-1.46); MAGNESIUM 2.1 mg/dL (1.8-2.4); PHOSPHORUS 3.3 mg/dL (2.5-4.9); THYROID STIMULATING HORMONE 1.86 uIU/mL (0.34-3.74)
[2019-12-28] MEDS: CARVEDILOL 3.125 MG TAB PO SCH ×2 (09:00→20:17)
[2019-12-28] MEDS ORDERED: metFORMIN 500 MG TAB PO SCH (09:00)
[2019-12-28] MEDS: ASPIRIN 81 MG TAB.CHEW PO SCH (09:15)
[2019-12-28] MEDS: ATORVASTATIN 20 MG TAB PO SCH (09:17)
[2019-12-28] MEDS: LISINOPRIL 5 MG TAB PO SCH (09:17)
--- NOTE | 2019-12-28 09:30 | NUR ---
SCHEDULED MEDS DUE GIVEN. WILL CONTINUE TO MONITOR.
[2019-12-28 09:31] LABS: CHOL/HDL RATIO 5.1 (1-4.5)
[2019-12-28] MEDS: PSEUDOEPHEDRINE 30 MG TAB PO PRN (13:27)
[2019-12-28] MEDS: NACL 0.9% 1,000 ML IV SCH (13:28)
--- NOTE | 2019-12-28 13:31 | NUR ---
PT COMPLAINS OF CONGESTION. SUDAFED GIVEN AT THIS TIME. WILL CONTINUE TO MONITOR.
[2019-12-28 15:28] VITALS: BP 127/71
[2019-12-28] MEDS: metFORMIN 500 MG TAB PO SCH (17:52)
--- NOTE | 2019-12-28 19:19 | NUR ---
GAVE REPORT TO MAINFRAME PROGRAMMER ANALYST NURSE. PATIENT IN STABLE CONDITION.
--- NOTE | 2019-12-28 19:30 | NUR ---
RECEIVED FROM AM RN IN BED AWAKE AND ALERT. NO SOB. NO COMPLAINTS OF CHEST PAIN OR ANY PAIN AT THIS TIME. CALL LIGHT WITH IN REACH. ENCOURAGED TO CALL FOR ANY HELP HE MAY NEED OR IF IN PAIN. WILL CONTINUE WITH CARE. ABLE TO VERBALIZE NEEDS WELL. TELEMETRY MONITORING. DX. OF CHEST.
[2019-12-28 20:20] VITALS: BP 117/80
--- NOTE | 2019-12-28 20:24 | NUR ---
PT. SITTING AT EDGE OF BED. ABLE TO VERBALIZE NEEDS WELL IN THAI. BLOOD SUGAR CHECK PER FINGERSTICK DONE AND BS WITH IN NORMAL LIMITS. ENCOURAGED TO REST AND BE READY TO SLEEP RT NIGHT TIME. "OK" RE-ORIENTED TO CALL LIGHT USE AND WITH IN REACH. TELEMETRY MONITORING.
--- NOTE | 2019-12-28 22:58 | NUR ---
PT. SLEEPING AT THIS TIME IN BED. NO RESTLESSNESS NOTED. TELEMETRY MONITORING.NSR ON MONITOR. NO ECTOPY NOTED. CALL LIGHT WITH IN REACH.
[2019-12-29] VITALS: BP 98/54
--- NOTE | 2019-12-29 01:42 | NUR ---
SLEEPING. TELEMETRY MONITORING HR 60-61 AT THIS TIME. NO RESTLESSNESS . CALL LIGHT WITH IN REACH.
[2019-12-29 04:07] VITALS: BP 101/60
[2019-12-29] MEDS: BLOOD GLUCOSE MONITORING 1 DEV DEV FS SCH (05:08)
[2019-12-29] MEDS: NACL 0.9% 1,000 ML IV SCH (05:09)
--- NOTE | 2019-12-29 05:10 | NUR ---
SLEEPING WELL THIS SHIFT. ABLE TO GO RESTROOM BY HIMSELF. VERBALIZES WELL IN YI AND ABLE TO USE CALL LIGHT FOR HELP. NO CHEST PAIN COMPLAINTS THIS SHIFT. BLOOD SUGAR CHECK PER FINGERSTICK IS 137 MG/DL. NO HUMALOG INSULIN COVERAGE ADMINISTERED.
[2019-12-29 06:03] LABS: BASOPHILS # (AUTO) 0.1 K/uL (0.00-0.22); BASOPHILS % (AUTO) 0.9 % (0.0-2.0); EOSINOPHILS # (AUTO) 0.3 K/uL (0-0.4); EOSINOPHILS % (AUTO) 3.4 % (0.0-4.0); HEMATOCRIT 38.7 % (36-52); HEMOGLOBIN 13.2 g/dL (12.0-18.0); LYMPHOCYTES # (AUTO) 2.3 K/uL (2.0-11.5); LYMPHOCYTES % (AUTO) 31.4 % (20.5-51.1); MEAN CORPUSCULAR HEMOGLOBIN 28 pg (27-31); MEAN CORPUSCULAR HGB CONC 34 g/dL (33-37); MEAN CORPUSCULAR VOLUME 82.3 fL (80-94); MONOCYTES # (AUTO) 0.5 K/uL (0.8-1.0); MONOCYTES % (AUTO) 6.1 % (1.7-9.3); NEUTROPHILS # (AUTO) 4.3 K/uL (1.8-7.7); NEUTROPHILS % (AUTO) 58.2 % (42.2-75.2); PLATELET COUNT (AUTO) 240 K/uL (140-450); RED CELL DISTRIBUTION WIDTH 13.2 % (11.6-13.7); WHITE BLOOD COUNT (AUTO) 7.4 K/uL (4.8-10.8)
[2019-12-29 06:35] LABS: MAGNESIUM 1.7 mg/dL (1.8-2.4)
[2019-12-29 06:46] LABS: ANION GAP 12.9 (8-16); CARBON DIOXIDE 26.3 mmol/L (21-32); CREATININE 1.2 mg/dL (0.6-1.3); POTASSIUM 4.2 mmol/L (3.5-5.1)
[2019-12-29 06:55] LABS: CHOL/HDL RATIO 4.4 (1-4.5)
[2019-12-29] MEDS ORDERED: MAGNESIUM OXIDE 400 MG TAB PO ONE (06:55)
--- NOTE | 2019-12-29 06:55 | NUR ---
WILL ENDORSE TO AM RN FOR CONTINUITY OF CARE. NO CHEST PAIN COMPLAINTS DONE THIS SHIFT. DIABETIC EDUCATION DONE. A/O X 4. ROM X 4. CLEAR SPEECH. TELEMETRY MONITORING THIS SHIFT. NO ECTOPY NOTED.
[2019-12-29 08:00] VITALS: BP 108/49
--- NOTE | 2019-12-29 08:07 | NUR ---
RECEIVED REPORT FROM NIGHT NURSE. PATIENT STANDING UP PERFORMING MORNING CARE, FACE WASHING, BRUSHING TEETH. RESPIRATIONS EVEN, UNLABORED, NO DISTRESS NOTED. BREATHING TO ROOM AIR. COOPERATIVE. IV SITE IN TACT, PATENT, AND INFUSING PER MD ORDERS. SKIN INTACT, WARM, DRY, AND APPROPRIATE TO ETHNICITY. REVIEWED PLAN OF CARE WITH PATIENT. PT VERBALIZED UNDERSTANDING. WILL CONTINUE TO MONITOR.
[2019-12-29] MEDS: LISINOPRIL 5 MG TAB PO SCH (09:00)
[2019-12-29] MEDS: CARVEDILOL 3.125 MG TAB PO SCH (09:00)
[2019-12-29] MEDS: PSEUDOEPHEDRINE 30 MG TAB PO PRN (09:27)
[2019-12-29] MEDS: ATORVASTATIN 20 MG TAB PO SCH (09:27)
[2019-12-29] MEDS: ASPIRIN 81 MG TAB.CHEW PO SCH (09:27)
[2019-12-29] MEDS: metFORMIN 500 MG TAB PO SCH (09:34)
[2019-12-29] MEDS ORDERED: MAGNESIUM OXIDE 400 MG TAB PO SCH (10:00)
[2019-12-29] MEDS ORDERED: LOVA40TA4 PO (10:38)
[2019-12-29] MEDS ORDERED: METF500T PO (10:38)
[2019-12-29] MEDS ORDERED: ASPI-1822 PO (10:38)
[2019-12-29] MEDS ORDERED: CARV3.12 PO (10:38)
[2019-12-29] MEDS ORDERED: NITR0.4T1 SL (10:40)
[2019-12-29] MEDS ORDERED: SUD30 PO (10:40)
[2019-12-29] MEDS ORDERED: ACET-2619 PO (10:48)
[2019-12-29] MEDS ORDERED: ATOR40TA PO (10:57)
--- NOTE | 2019-12-29 11:30 | NUR ---
DR. DEXTER AT BEDSIDE REVIEWING PLAN OF CARE WITH PATIENT. WILL CONTINUE TO MONITOR.
[2019-12-29 12:10] LABS: T4 (THYROXINE) 6.4 ug/dL (4.5-12.0)
--- NOTE | 2019-12-29 12:30 | NUR ---
DISCHARGE INSTRUCTIONS GIVEN TO PATIENT IN PREFERRED LANGUAGE OF GIBRALTARIAN. INSTRUCTIONS ON NEW/CHANGED MEDICATIONS AND SIDE EFFECTS, DIET REGIMEN, FOLLOW-UP WITH PCP AND MANAGER POKER, AND MANAGEMENT OF CHEST PAIN. ANSWERED ALL OF PATIENT'S QUESTIONS REGARDING DISCHARGE. PATIENT VERBALIZED COMPLETE UNDERSTANDING. IV SITE REMOVED WITH MINIMAL BLOOD AND LUMEN COMPLETELY INTACT. ID BANDS REMOVED. ALL BELONGINGS WITH PATIENT. ESCORTED PATIENT DOWN TO LOBBY VIA STEADY AMBULATION. PATIENT DISCHARGED AT THIS TIME TO HOME IN STABLE [id number].
== END 2019-12-29 12:40 | disposition home or self-care (01) | DRG 206 ==
LOC: MED 17:45 → MTU 20:43
PROVIDERS: ADMIT General Practice; ATTEND General Practice
DX: M94.0 Chondrocostal junction syndrome [Tietze] (principal); E11.9 Type 2 diabetes mellitus without complications; I10 Essential (primary) hypertension; E78.5 Hyperlipidemia, unspecified; I25.10 Atherosclerotic heart disease of native coronary artery without angina pectoris; E78.00 Pure hypercholesterolemia, unspecified; Z79.899 Other long term (current) drug therapy; I25.2 Old myocardial infarction; Z88.0 Allergy status to penicillin; Z79.82 Long term (current) use of aspirin; Z87.891 Personal history of nicotine dependence; Z98.49 Cataract extraction status, unspecified eye; Z90.49 Acquired absence of other specified parts of digestive tract
CPT/HCPCS: 36415; 71045; 80048; 80053; 80305; 81001; 82150; 82272; 82948; 83036; 83690; 83735; 83880; 84100; 84436; 84439; 84443; 84479; 84484; 85025; 85610; 85730; 87081; 93005; 99285; J1644; J7030

== ENCOUNTER 2020-06-18 11:17 | Emergency (ER) | payer OTHER ==
[~2020-06-18] VITALS: Ht 175.3 cm; Wt 97.1 kg
[~2020-06-18 11:17] MED LIST changes: +ACET-2619 PO; -ATI.5 PO; +ATOR40TA PO; -LORA10TA19 PO; +NITR0.4T1 SL; -NITR0.4T2 SL; +SUD30 PO
[2020-06-18 11:25] VITALS: BP 147/79
--- NOTE | 2020-06-18 11:39 | NUR ---
64/M C/O PAINFUL ABSCESS TO RIGHT UPPER BACK X 1 WEEK. SEEN BY PCP & TAKING SULFA. STATES HE HAS HAD ABSCESS FORMATION TWICE BEFORE IN SAME AREA (THIS IS THIRD TIME), HAD PRIOR ABSCESS "DRAINED" BEFORE. BLOOD SUGAR 159,BP 147/79 AT THIS TIME. MED HX:HTN, DM, HLD
--- NOTE | 2020-06-18 11:39 | NUR ---
DENIES FEVER/CHILLS
--- NOTE | 2020-06-18 11:42 | NUR ---
DR JUAREZ EVALUATING PT AT BEDSIDE
[2020-06-18] MEDS ORDERED: LIDOCAINE/EPI 1% 1:100000 20 ML VIAL INJ ONE (11:45)
[2020-06-18 12:35] VITALS: BP 147/79
== END 2020-06-18 12:35 | disposition home or self-care (01) ==
LOC: MED 11:17
DX: L02.212 Cutaneous abscess of back [any part, except buttock and flank] (principal); E11.9 Type 2 diabetes mellitus without complications; E78.5 Hyperlipidemia, unspecified; I10 Essential (primary) hypertension
CPT/HCPCS: 10060; 99284; J2001

== ENCOUNTER 2020-06-20 13:22 | Emergency (ER) | payer OTHER ==
[~2020-06-20] VITALS: Ht 175.3 cm; Wt 97.1 kg
[2020-06-20 13:32] VITALS: BP 119/76
--- NOTE | 2020-06-20 15:45 | NUR ---
Dr. Lay evaluating patient in chair A.
--- NOTE | 2020-06-20 15:58 | NUR ---
Patient discharged by Dr. Lay. All instructions given by Dr. Lay.
== END 2020-06-20 15:59 | disposition home or self-care (01) ==
LOC: MED 13:22
DX: L02.11 Cutaneous abscess of neck (principal); E11.9 Type 2 diabetes mellitus without complications; I10 Essential (primary) hypertension; I25.2 Old myocardial infarction; Z79.84 Long term (current) use of oral hypoglycemic drugs; Z79.82 Long term (current) use of aspirin; Z79.899 Other long term (current) drug therapy; Z88.0 Allergy status to penicillin
CPT/HCPCS: 99282

== ENCOUNTER 2020-11-19 14:34 | Emergency (ER) | payer OTHER ==
[~2020-11-19] VITALS: Ht 175.3 cm; Wt 98.9 kg
[2020-11-19 14:46] VITALS: BP 123/75
[2020-11-19] MEDS ORDERED: KETOROLAC 30 MG/ML VIAL IM ONE ×2 (15:30→17:05)
[2020-11-19] MEDS ORDERED: HYDROcodone/APAP 5/325 MG 1 TAB TAB PO ONE ×2 (15:30→17:05)
[2020-11-19 15:51] LABS: BASOPHILS # (AUTO) 0.1 K/uL (0.00-0.22); BASOPHILS % (AUTO) 0.9 % (0.0-2.0); EOSINOPHILS # (AUTO) 0.3 K/uL (0-0.4); EOSINOPHILS % (AUTO) 4.1 % (0.0-4.0); HEMATOCRIT 40.1 % (36-52); HEMOGLOBIN 13.2 g/dL (12.0-18.0); LYMPHOCYTES # (AUTO) 2.8 K/uL (2.0-11.5); LYMPHOCYTES % (AUTO) 34.3 % (20.5-51.1); MEAN CORPUSCULAR HEMOGLOBIN 28 pg (27-31); MEAN CORPUSCULAR HGB CONC 33 g/dL (33-37); MEAN CORPUSCULAR VOLUME 84.9 fL (80-94); MONOCYTES # (AUTO) 0.8 K/uL (0.8-1.0); MONOCYTES % (AUTO) 9.6 % (1.7-9.3); NEUTROPHILS # (AUTO) 4.2 K/uL (1.8-7.7); NEUTROPHILS % (AUTO) 51.1 % (42.2-75.2); PLATELET COUNT (AUTO) 261 K/uL (140-450); RED BLOOD CELL COUNT(AUTO) 4.72 MIL/uL (4.20-6.10); RED CELL DISTRIBUTION WIDTH 13.1 % (11.6-13.7); WHITE BLOOD COUNT (AUTO) 8.1 K/uL (4.8-10.8)
[2020-11-19 16:06] LABS: ALBUMIN 3.6 g/dL (3.4-5.0); ANION GAP 10.7 (8-16); CARBON DIOXIDE 28.4 mmol/L (21-32); CREATININE 1.2 mg/dL (0.6-1.3); POTASSIUM 4.1 mmol/L (3.5-5.1); TOTAL BILIRUBIN 0.4 mg/dL (0.0-1.0)
--- NOTE | 2020-11-19 17:25 | NUR ---
Patient discharged with v/s stable. Written and verbal after care instructions given and explained. Patient alert, oriented and verbalized understanding of instructions. Ambulatory with steady gait. All questions addressed prior to discharge. ID band removed. Patient advised to follow up with PMD. Rx of NORCO , NAPROSYN 500 given. Patient educated on indication of medication including possible reaction and side effects. Opportunity to ask questions provided and answered. IV REMOVED, PRESSURE DRESSING APPLIED AND EFFECTIVE NOTED.
[2020-11-19 18:02] VITALS: BP 144/60
== END 2020-11-19 17:25 | disposition home or self-care (01) ==
LOC: MED 14:34
DX: R07.89 Other chest pain (principal); E11.9 Type 2 diabetes mellitus without complications; I11.9 Hypertensive heart disease without heart failure; Z04.9 Encounter for examination and observation for unspecified reason; Z88.0 Allergy status to penicillin; Z79.899 Other long term (current) drug therapy
CPT/HCPCS: 36415; 71045; 80053; 83690; 84484; 85025; 93005; 96372; 99285; J1885

== ENCOUNTER 2021-11-11 09:24 | Emergency (ER) | payer OTHER ==
[~2021-11-11] VITALS: Ht 175.3 cm; Wt 101.6 kg
[2021-11-11 09:49] VITALS: BP 141/82
[2021-11-11 11:56] LABS: BASOPHILS # (AUTO) 0.1 K/uL (0.00-0.22); BASOPHILS % (AUTO) 1.4 % (0.0-2.0); EOSINOPHILS # (AUTO) 0.3 K/uL (0-0.4); EOSINOPHILS % (AUTO) 3.7 % (0.0-4.0); HEMATOCRIT 42.1 % (36-52); LYMPHOCYTES # (AUTO) 2.2 K/uL (2.0-11.5); LYMPHOCYTES % (AUTO) 24.1 % (20.5-51.1); MEAN CORPUSCULAR HEMOGLOBIN 28 pg (27-31); MEAN CORPUSCULAR HGB CONC 33 g/dL (33-37); MONOCYTES # (AUTO) 0.7 K/uL (0.8-1.0); MONOCYTES % (AUTO) 7.5 % (1.7-9.3); NEUTROPHILS # (AUTO) 5.9 K/uL (1.8-7.7); NEUTROPHILS % (AUTO) 63.3 % (42.2-75.2); PLATELET COUNT (AUTO) 263 K/uL (140-450); RED BLOOD CELL COUNT(AUTO) 4.95 MIL/uL (4.20-6.10); RED CELL DISTRIBUTION WIDTH 13.1 % (11.6-13.7); WHITE BLOOD COUNT (AUTO) 9.2 K/uL (4.8-10.8)
[2021-11-11 12:56] LABS: ALBUMIN 3.8 g/dL (3.4-5.0); ANION GAP 11.9 (8-16); CARBON DIOXIDE 30.2 mmol/L (21-32); CREATININE 1.2 mg/dL (0.6-1.3); POTASSIUM 4.1 mmol/L (3.5-5.1); TOTAL BILIRUBIN 0.5 mg/dL (0.0-1.0)
[2021-11-11] MEDS ORDERED: ACET-10509 PO (15:59)
[2021-11-11] MEDS ORDERED: PSEU120T23 PO (15:59)
[2021-11-11] MEDS ORDERED: FAMO-90 PO (15:59)
--- NOTE | 2021-11-11 16:08 | NUR ---
DISCHARGED BY DR. LORI DEL TORO, DO @ [id number] Patient discharged with v/s stable. Written and verbal after care instructions given and explained. Patient alert, oriented and verbalized understanding of instructions. Ambulatory with steady gait. All questions addressed prior to discharge. ID band removed. Patient advised to follow up with PMD. Rx of Acetaminophen, Famotidine, Pseudophedrine Hcl given. Patient educated on indication of medication including possible reaction and side effects. Opportunity to ask questions provided and answered.
== END 2021-11-11 16:08 | disposition home or self-care (01) ==
LOC: MED 09:24
DX: J06.9 Acute upper respiratory infection, unspecified (principal); R07.9 Chest pain, unspecified; Z20.822 Contact with and (suspected) exposure to COVID-19; E11.9 Type 2 diabetes mellitus without complications; I10 Essential (primary) hypertension; I25.2 Old myocardial infarction; E78.00 Pure hypercholesterolemia, unspecified; Z79.899 Other long term (current) drug therapy; Z79.82 Long term (current) use of aspirin; Z87.891 Personal history of nicotine dependence; Z88.0 Allergy status to penicillin
CPT/HCPCS: 36415; 71045; 80053; 83880; 84484; 85025; 93005; 99285; U0003

== ENCOUNTER 2021-12-27 17:07 | Emergency (ER) | payer OTHER ==
[~2021-12-27] VITALS: Ht 175.3 cm; Wt 101.2 kg
[~2021-12-27 17:07] MED LIST changes: +ACET-10509 PO; +FAMO-90 PO; +PSEU120T23 PO
[2021-12-27 17:13] VITALS: BP 152/96
--- NOTE | 2021-12-27 17:30 | NUR ---
66 Y/O M TO ED WITH CHEST PAIN AND SOB. PT STATES TESTED POSITIVE FOR COVID 1 M AGO. STARTED DIARRHEA TODAY 6 EPISODES. DENIES N/V; SKIN IS PINK/WARM/DRY; AAOX4 WITH EVEN AND STEADY GAIT; LUNGS CLEAR BL; HR EVEN AND REGULAR; PT DENIES ANY FEVER OR COUGH AT THIS TIME; PATIENT STATES PAIN OF 8/10 AT THIS TIME; VSS; PLACED ON CORE DRIER. PATIENT POSITIONED FOR COMFORT; HOB ELEVATED; BEDRAILS UP X2; BED DOWN. ER MD MADE AWARE OF PT STATUS. PMH: DM, HTN, NC 10 Y AGO, HLD MEDS: METFORMIN, PANTOPRAZOLE, ASPIRIN, ATORVASTATIN.
--- NOTE | 2021-12-27 17:30 | NUR ---
Note undone in EDM - 12/27/21 at 1748 by CHASTITY 66 Y/O M TO ED WITH CHEST PAIN AND SOB. PT STATES TESTED POSITIVE FOR COVID 1 M AGO. STARTED DIARRHEA TODAY 6 EPISODES. DENIES N/V; SKIN IS PINK/WARM/DRY; AAOX4 WITH EVEN AND STEADY GAIT; LUNGS CLEAR BL; HR EVEN AND REGULAR; PT DENIES ANY FEVER, CP, SOB, OR COUGH AT THIS TIME; PATIENT STATES PAIN OF 8/10 AT THIS TIME; VSS; PLACED ON VOIP NETWORK TECHNICIAN. PATIENT POSITIONED FOR COMFORT; HOB ELEVATED; BEDRAILS UP X2; BED DOWN. ER MADE AWARE OF PT STATUS. PMH: DM, HTN, [place] 10 Y AGO, HLD MEDS: METFORMIN, PANTOPRAZOLE, ASPIRIN, ATORVASTATIN.
--- NOTE | 2021-12-27 19:00 | NUR ---
STARTED 20G IV AND DYLON ORDERED LABS. STARTED 1L BOLUS NS. NADR. WILL CONTINUE TO CLOSELY MONITOR.
--- NOTE | 2021-12-27 19:15 | NUR ---
ENDORSED BEDSIDE REPORT TO JOAN FOR CONTINUITY OF CARE.
--- NOTE | 2021-12-27 19:15 | NUR ---
Nathalie diane in [facility] - 12/27/21 at 1937 by TAMARA ENDORSED BEDSIDE REPORT TO JOAN FOR CONTINUITY OF CARE.
--- NOTE | 2021-12-27 19:23 | NUR ---
REPORT RECEIVED FROM TRAM DIAZ. CONTINUITY OF PT CARE AT THIS TIME.
[2021-12-27 19:28] LABS: BASOPHILS # (AUTO) 0.1 K/uL (0.00-0.22); BASOPHILS % (AUTO) 0.6 % (0.0-2.0); EOSINOPHILS # (AUTO) 0.3 K/uL (0-0.4); EOSINOPHILS % (AUTO) 2.7 % (0.0-4.0); HEMATOCRIT 38.7 % (36-52); LYMPHOCYTES # (AUTO) 1.6 K/uL (2.0-11.5); LYMPHOCYTES % (AUTO) 16.1 % (20.5-51.1); MEAN CORPUSCULAR HEMOGLOBIN 28 pg (27-31); MEAN CORPUSCULAR HGB CONC 34 g/dL (33-37); MEAN CORPUSCULAR VOLUME 83.8 fL (80-94); MONOCYTES # (AUTO) 0.4 K/uL (0.8-1.0); MONOCYTES % (AUTO) 4.3 % (1.7-9.3); NEUTROPHILS # (AUTO) 7.4 K/uL (1.8-7.7); NEUTROPHILS % (AUTO) 76.3 % (42.2-75.2); PLATELET COUNT (AUTO) 323 K/uL (140-450); RED BLOOD CELL COUNT(AUTO) 4.62 MIL/uL (4.20-6.10); RED CELL DISTRIBUTION WIDTH 13.9 % (11.6-13.7); WHITE BLOOD COUNT (AUTO) 9.7 K/uL (4.8-10.8)
--- NOTE | 2021-12-27 19:32 | NUR ---
Note maheshone in EDM - 12/27/21 at 1955 by TAMARA PT LAYING IN BED IN L LATERAL POSITION W X2 SIDERAIL UP FOR PT SAFETY. PT REPORTS FEELING OVERALL BETTER W CHEST PAIN IMPROVEMENT NOW 04/15, DENIES SOB REPORTS ONLY NASAL CONGESTION. DENIES N/V/D OR OTHER SYMPTOMS AT THIS TIME. PT CONNECTED TO MONITOR W VSS. BREATHING EVEN AND UNLABORED. NAD NOTED, WILL CONTINUE TO MONITOR.
--- NOTE | 2021-12-27 19:32 | NUR ---
PT LAYING IN BED IN L LATERAL POSITION W X2 SIDERAIL UP FOR PT SAFETY. PT REPORTS FEELING OVERALL BETTER W CHEST PAIN IMPROVEMENT NOW 04/15, DENIES SOB REPORTS ONLY NASAL CONGESTION. DENIES NAUSEA OR OTHER SYMPTOMS AT THIS TIME. PT CONNECTED TO MONITOR W VSS. BREATHING EVEN AND UNLABORED. NAD NOTED, WILL CONTINUE TO MONITOR.
--- NOTE | 2021-12-27 19:33 | NUR ---
DK AND FLU SWABS COLLECTED FROM PT NARES AND HANDED TO SANDRO FROM LAB.
--- NOTE | 2021-12-27 19:35 | NUR ---
PT TO CT VIA WHEELCHAIR.
[2021-12-27 20:02] LABS: ALBUMIN 3.6 g/dL (3.4-5.0); ANION GAP 13.2 (8-16); CARBON DIOXIDE 24.9 mmol/L (21-32); CREATININE 1.4 mg/dL (0.6-1.3); POTASSIUM 4.1 mmol/L (3.5-5.1); TOTAL BILIRUBIN 0.6 mg/dL (0.0-1.0)
[2021-12-27] MEDS ORDERED: NACL 0.9% 1,000 ML IV ONE (20:20)
--- NOTE | 2021-12-27 21:26 | NUR ---
PT REPORTS FEELING BETTER OVERALL. VSS.
[2021-12-27] MEDS ORDERED: BISM262C53 PO (21:38)
[2021-12-27] MEDS ORDERED: LEVO750T51 PO (21:38)
[2021-12-27 22:43] VITALS: BP 119/58
--- NOTE | 2021-12-27 22:43 | NUR ---
Patient discharged with v/s stable. Written and verbal after care instructions given and explained. Patient alert, oriented and verbalized understanding of instructions. Ambulatory with steady gait. All questions addressed prior to discharge. ID band removed. Patient advised to follow up with PMD. Rx of PEPTO-BISMOL, LEVOFLAXACIN given. Patient educated on indication of medication including possible reaction and side effects. Opportunity to ask questions provided and answered.
== END 2021-12-27 22:43 | disposition home or self-care (01) ==
LOC: MED 17:07
DX: J18.9 Pneumonia, unspecified organism (principal); R19.7 Diarrhea, unspecified; I11.9 Hypertensive heart disease without heart failure; E11.9 Type 2 diabetes mellitus without complications; Z88.0 Allergy status to penicillin; Z79.899 Other long term (current) drug therapy; Z20.822 Contact with and (suspected) exposure to COVID-19
CPT/HCPCS: 36415; 71045; 74176; 80053; 83690; 83880; 84484; 85025; 87426; 87804; 93005; 96360; 99285; J7030; Q0092

== ENCOUNTER 2022-04-01 10:28 | Inpatient (IN) | payer OTHER ==
[~2022-04-01] VITALS: Ht 205.7 cm; Wt 103.4 kg
[~2022-04-01 10:28] MED LIST changes: +BISM262C53 PO; +LEVO750T51 PO; +METF-346 PO; -METF500T PO
[2022-04-01 10:39] VITALS: BP 157/79
[2022-04-01] MEDS ORDERED: KETOROLAC 30 MG/ML VIAL IM ONE (11:20)
[2022-04-01 11:40] LABS: BASOPHILS # (AUTO) 0.1 K/uL (0.00-0.22); BASOPHILS % (AUTO) 1.1 % (0.0-2.0); EOSINOPHILS # (AUTO) 0.3 K/uL (0-0.4); HEMATOCRIT 38.5 % (36-52); HEMOGLOBIN 12.9 g/dL (12.0-18.0); LYMPHOCYTES # (AUTO) 2.8 K/uL (2.0-11.5); LYMPHOCYTES % (AUTO) 36.2 % (20.5-51.1); MEAN CORPUSCULAR HEMOGLOBIN 28 pg (27-31); MEAN CORPUSCULAR HGB CONC 34 g/dL (33-37); MEAN CORPUSCULAR VOLUME 83.4 fL (80-94); MONOCYTES # (AUTO) 0.6 K/uL (0.8-1.0); MONOCYTES % (AUTO) 7.4 % (1.7-9.3); NEUTROPHILS % (AUTO) 51.3 % (42.2-75.2); PLATELET COUNT (AUTO) 296 K/uL (140-450); RED BLOOD CELL COUNT(AUTO) 4.62 MIL/uL (4.20-6.10); RED CELL DISTRIBUTION WIDTH 13.4 % (11.6-13.7); WHITE BLOOD COUNT (AUTO) 7.9 K/uL (4.8-10.8)
[2022-04-01 12:13] LABS: ALBUMIN 3.4 g/dL (3.4-5.0); ANION GAP 12.2 (8-16); ASPARTATE AMINOTRANSFERASE 22 U/L (15-37); CARBON DIOXIDE 27.5 mmol/L (21-32); CHLORIDE 107 mmol/L (98-107); CREATININE 1.2 mg/dL (0.6-1.3); GFR ARICAN-AMERICAN 78 mL/min (>90); GLUCOSE 108 mg/dL (74-106); LIPASE 54 U/L (73-393); POTASSIUM 3.7 mmol/L (3.5-5.1); SODIUM SERUM 143 mmol/L (136-145); TOTAL BILIRUBIN 0.3 mg/dL (0.0-1.0); UREA NITROGEN, BLOOD 17 mg/dL (7-18)
[2022-04-01] MEDS ORDERED: ASPIRIN 325 MG TAB PO ONE (12:55)
[2022-04-01] MEDS ORDERED: LIP80 PO (13:41)
[2022-04-01] MEDS ORDERED: PANT40EC PO (13:43)
[2022-04-01] MEDS ORDERED: METF-346 PO (13:47)
[2022-04-01] MEDS ORDERED: VITB12 PO (13:52)
[2022-04-01] MEDS ORDERED: METH-1866 PO (13:52)
[2022-04-01] MEDS ORDERED: ZINC50TA76 PO (13:54)
[2022-04-01] MEDS ORDERED: TRI48 PO (13:55)
[2022-04-01] MEDS ORDERED: VIT1TAB10 PO (13:58)
[2022-04-01] MEDS ORDERED: ASCO500T95 PO (13:59)
[2022-04-01] MEDS ORDERED: HYDROcodone/APAP 5/325 MG 1 TAB TAB PO PRN (15:45)
[2022-04-01] MEDS ORDERED: DOCUSATE SODIUM 100 MG GELCAP PO PRN (15:45)
[2022-04-01] MEDS ORDERED: POTASSIUM CHLORIDE 10 MEQ TABER PO PRN (15:45)
[2022-04-01] MEDS ORDERED: ZOLPIDEM 5 MG TAB PO PRN (15:45)
[2022-04-01] MEDS ORDERED: ACETAMINOPHEN 325 MG TAB PO PRN (15:45)
[2022-04-01] MEDS ORDERED: ONDANSETRON 4 MG/2 ML VIAL IVP PRN (15:45)
[2022-04-01] MEDS ORDERED: MORPHINE SULFATE 2 MG/ML SYR IVP PRN (15:45)
[2022-04-01] MEDS ORDERED: MAG SULF 2000 MG/WATER PREMIX 50 ML IV PRN (15:45)
[2022-04-01] MEDS ORDERED: SODIUM PHOS / POTASSIUM PHOS 1 PKT PDR PO PRN (15:45)
[2022-04-01] MEDS ORDERED: LORazepam 2 MG/ML VIAL IM/IVP PRN (15:45)
[2022-04-01 16:10] LABS: CHOL/HDL RATIO 4.8 (1-4.5); FREE T4 (FREE THYROXINE) 0.73 ng/dL (0.76-1.46); PHOSPHORUS 3.3 mg/dL (2.5-4.9); THYROID STIMULATING HORMONE 2.23 uIU/mL (0.34-3.74)
[2022-04-01 16:13] LABS: PROTHROMBIN TIME 9.5 secs (10.8-13.4)
[2022-04-01 16:39] LABS: APPEARANCE,URINE CLEAR (CLEAR); BILIRUBIN,URINE NEGATIVE (NEGATIVE); BLOOD, URINE TRACE-I (NEGATIVE); COLOR,URINE YELLOW (YELLOW); LEUKOCYTE ESTERASE ,URINE NEGATIVE (NEGATIVE); NITRITE, URINE NEGATIVE (NEGATIVE); PH,URINE 6.5 (5.0-9.0); UGLUCOSE NEGATIVE (NEGATIVE)
[2022-04-01] MEDS: NACL 0.9% 1,000 ML IV SCH (17:08)
[2022-04-01 17:15] VITALS: BP 105/50
[2022-04-01 20:00] VITALS: BP 117/65
[2022-04-01] MEDS ORDERED: ATORVASTATIN 20 MG TAB PO SCH (21:00)
[2022-04-02] VITALS: BP 117/59
[2022-04-02] MEDS: NACL 0.9% 1,000 ML IV SCH ×2 (01:45→03:30)
[2022-04-02 04:00] VITALS: BP 143/66
[2022-04-02 05:54] LABS: BASOPHILS # (AUTO) 0.1 K/uL (0.00-0.22); EOSINOPHILS # (AUTO) 0.2 K/uL (0-0.4); EOSINOPHILS % (AUTO) 3.4 % (0.0-4.0); HEMATOCRIT 41.2 % (36-52); HEMOGLOBIN 13.8 g/dL (12.0-18.0); LYMPHOCYTES # (AUTO) 3.4 K/uL (2.0-11.5); LYMPHOCYTES % (AUTO) 46.4 % (20.5-51.1); MEAN CORPUSCULAR HEMOGLOBIN 28 pg (27-31); MEAN CORPUSCULAR HGB CONC 33 g/dL (33-37); MEAN CORPUSCULAR VOLUME 84.7 fL (80-94); MONOCYTES # (AUTO) 0.4 K/uL (0.8-1.0); MONOCYTES % (AUTO) 5.5 % (1.7-9.3); NEUTROPHILS # (AUTO) 3.2 K/uL (1.8-7.7); NEUTROPHILS % (AUTO) 43.7 % (42.2-75.2); PLATELET COUNT (AUTO) 287 K/uL (140-450); RED BLOOD CELL COUNT(AUTO) 4.87 MIL/uL (4.20-6.10); RED CELL DISTRIBUTION WIDTH 13.2 % (11.6-13.7); WHITE BLOOD COUNT (AUTO) 7.3 K/uL (4.8-10.8)
[2022-04-02 06:31] LABS: ALBUMIN 3.6 g/dL (3.4-5.0); ANION GAP 13.8 (8-16); CARBON DIOXIDE 25.3 mmol/L (21-32); CREATININE 1.2 mg/dL (0.6-1.3); POTASSIUM 4.1 mmol/L (3.5-5.1); TOTAL BILIRUBIN 0.4 mg/dL (0.0-1.0)
[2022-04-02] MEDS ORDERED: ECOTRIN 81 MG TABEC PO SCH (09:00)
[2022-04-02 12:58] VITALS: BP 131/54
[2022-04-02 17:28] VITALS: BP 124/68
== END 2022-04-02 18:00 | disposition short-term general hospital (02) | DRG 69 ==
LOC: MED 10:28 → MTU 13:24
PROVIDERS: ADMIT Family Medicine; ATTEND Family Medicine
DX: G45.9 Transient cerebral ischemic attack, unspecified (principal); E11.9 Type 2 diabetes mellitus without complications; I10 Essential (primary) hypertension; R07.89 Other chest pain; E78.5 Hyperlipidemia, unspecified; Z88.0 Allergy status to penicillin; Z79.899 Other long term (current) drug therapy; I25.2 Old myocardial infarction; Z90.49 Acquired absence of other specified parts of digestive tract; Z87.891 Personal history of nicotine dependence
CPT/HCPCS: 36415; 70450; 71045; 80053; 81003; 82150; 83036; 83690; 83735; 83880; 84100; 84439; 84443; 84484; 85025; 85610; 85730; 87081; 93880; 96372; 97163-GP; 99285; J1885; Q0092

== ENCOUNTER 2022-08-21 09:54 | Inpatient (IN) | payer OTHER ==
[~2022-08-21] VITALS: Ht 175.3 cm; Wt 101.6 kg
[~2022-08-21 09:54] MED LIST changes: -ACET-10509 PO; +ASCO500T95 PO; -ASPI-1822 PO; -ATOR40TA PO; -BISM262C53 PO; -FAMO-90 PO; -LEVO750T51 PO; +LIP80 PO; -LOVA40TA4 PO; +METH-1866 PO; +PANT40EC PO; -PSEU120T23 PO; -SUD30 PO; +TRI48 PO; +VIT1TAB10 PO; +VITB12 PO; +ZINC50TA76 PO
[2022-08-21 09:59] VITALS: BP 160/75
--- NOTE | 2022-08-21 10:11 | NUR ---
PT AMB TO BED 6
--- NOTE | 2022-08-21 10:31 | NUR ---
IV started blood work obtained, walked to lab.
--- NOTE | 2022-08-21 10:39 | NUR ---
67 y/o male bib self with c/o chest pain that started today AM. Patient took 2 baby Aspirin today. Patient also has SOB. Patient has had this feeling before and states its worse this time. Medical History: DM HTN, HLD ALLERGY: PENICILLIN
--- NOTE | 2022-08-21 10:39 | NUR ---
Dr. Nowak evaluating patient at bedside.
[2022-08-21 10:45] LABS: BASOPHILS # (AUTO) 0.1 K/uL (0.00-0.22); EOSINOPHILS # (AUTO) 0.3 K/uL (0-0.4); EOSINOPHILS % (AUTO) 3.5 % (0.0-4.0); HEMATOCRIT 39.3 % (36-52); HEMOGLOBIN 13.4 g/dL (12.0-18.0); LYMPHOCYTES % (AUTO) 40.9 % (20.5-51.1); MEAN CORPUSCULAR HEMOGLOBIN 28 pg (27-31); MEAN CORPUSCULAR HGB CONC 34 g/dL (33-37); MEAN CORPUSCULAR VOLUME 83.4 fL (80-94); MONOCYTES # (AUTO) 0.5 K/uL (0.8-1.0); MONOCYTES % (AUTO) 6.1 % (1.7-9.3); NEUTROPHILS # (AUTO) 3.6 K/uL (1.8-7.7); NEUTROPHILS % (AUTO) 48.5 % (42.2-75.2); PLATELET COUNT (AUTO) 255 K/uL (140-450); RED BLOOD CELL COUNT(AUTO) 4.72 MIL/uL (4.20-6.10); RED CELL DISTRIBUTION WIDTH 13.4 % (11.6-13.7); WHITE BLOOD COUNT (AUTO) 7.3 K/uL (4.8-10.8)
[2022-08-21] MEDS ORDERED: NITROGLYCERIN 0.4 MG TAB SL ONE (10:45)
--- NOTE | 2022-08-21 11:05 | NUR ---
X-RAY AT BEDSIDE.
[2022-08-21 11:06] LABS: ALBUMIN 3.3 g/dL (3.4-5.0); CREATININE 1.2 mg/dL (0.6-1.3); TOTAL BILIRUBIN 0.3 mg/dL (0.0-1.0)
[2022-08-21] MEDS ORDERED: MORPHINE SULFATE 4 MG/ML SYR IVP ONE (11:30)
[2022-08-21] MEDS ORDERED: ONDANSETRON 4 MG/2 ML VIAL IVP ONE (11:30)
[2022-08-21] MEDS ORDERED: FISH100053 PO (11:38)
[2022-08-21] MEDS ORDERED: ASPI-1822 PO (11:38)
[2022-08-21] MEDS ORDERED: LORA10TA19 PO (11:38)
--- NOTE | 2022-08-21 11:39 | NUR ---
Med rec done.
--- NOTE | 2022-08-21 11:41 | NUR ---
BP 111/68 HR48 MORPHINE HELD PER ABILIO FINK.
--- NOTE | 2022-08-21 12:29 | NUR ---
Patient ambulated to restroom with steady gait.
[2022-08-21] MEDS ORDERED: ASPIRIN 325 MG TAB PO ONE (12:45)
[2022-08-21] MEDS ORDERED: ZOLPIDEM 10 MG TAB PO PRN (13:50)
[2022-08-21] MEDS ORDERED: ONDANSETRON 4 MG/2 ML VIAL IVP PRN (13:50)
[2022-08-21] MEDS ORDERED: ACETAMINOPHEN 325 MG TAB PO PRN (13:50)
[2022-08-21] MEDS ORDERED: MORPHINE SULFATE 2 MG/ML SYR IVP PRN (13:50)
[2022-08-21] MEDS ORDERED: LORazepam 2 MG/ML VIAL IVP PRN (13:50)
[2022-08-21] MEDS ORDERED: POTASSIUM CHLORIDE 10 MEQ TABER PO PRN (13:50)
[2022-08-21] MEDS ORDERED: DOCUSATE SODIUM 100 MG GELCAP PO PRN (13:50)
[2022-08-21] MEDS ORDERED: MAG SULF 2000 MG/WATER PREMIX 50 ML IV PRN (13:50)
--- NOTE | 2022-08-21 13:58 | NUR ---
Lab at bedside.
--- NOTE | 2022-08-21 14:25 | NUR ---
Patient is alert and verbally responsive. Respirations even and unlabored. All needs met by staff.
--- NOTE | 2022-08-21 16:48 | NUR ---
Patient is laying in bed, respirations even and unlabored. All needs met by staff.
[2022-08-21] MEDS: metFORMIN 500 MG TAB PO SCH (17:22)
--- NOTE | 2022-08-21 18:32 | NUR ---
Patient is asleep on bed, dinner tray was left at bedside.
--- NOTE | 2022-08-21 19:18 | NUR ---
Report given to RANDY De Leon for transfer of care.
--- NOTE | 2022-08-21 19:56 | NUR ---
The patient's care was reviewed and supervised by Rose Jones RN.
--- NOTE | 2022-08-21 19:56 | NUR ---
Patient will be admitted to care of Dr. Gandhi. Admited to TELE. Will go to room 104B. Belongings list completed. Report to TRAM Guzman.
[2022-08-21 20:00] VITALS: BP 127/73
--- NOTE | 2022-08-21 20:00 | NUR ---
RECEIVED REPORT FROM ER NURSE ALISON FOR CONTINUITY OF CARE. PATIENT IS A&O X4. PATIENT IS ON ROOM AIR, BREATHING IS NORMAL WITH SYMMETRICAL RISE AND FALL OF CHEST. IV IS A 20G LEFT AC, NO FLUIDS RUNNING AT THIS TIME (SALINE LOCKED). PATIENT IS SITTING UP IN BED. ADMISSION VITALS OBTAINED. VITALS WERE: TEMP 96.8, HR 59, BP 127/73, O2 98, RR 18. BED IS IN LOWEST POSITION, WHEELS LOCKED, CALL LIGHT IN PLACE. WILL CONTINUE TO OBSERVE PATIENT.
--- NOTE | 2022-08-21 23:30 | NUR ---
WAS INFORMED BY TELE NURSE ERNESTO THAT PATIENT'S HR WAS 41. WENT TO PATIENT'S ROOM AND WOKE HIM UP. EXPLAINED TO PATIENT THAT HIS HR WAS REALLY LOW ON OUR MONITORS AND I NEEDED TO GET HIS VITALS. I FIRST ALLOWED PATIENT TO WAKE UP AND SIT UP IN BED. AFTER A FEW MINUTES I OBTAINED VITALS. VITALS WERE: HR 56, BP 143/79, O2 100, RR 18, TEMP 96.7. CHECKED REGISTERED REPRESENTATIVE AND HR WAS IN THE MID 50'S. INFORMED PATIENT THAT HIS HR WAS LOOKING BETTER, COULD TELL THAT PATIENT WAS CONCERNED; I LET HIM KNOW THAT WE ARE CONTINUOUSLY MONITORING HIS HR AND WILL BE ALERTED IF IT DROPS TO LOW AGAIN. PATIENT DECIDED TO LAY DOWN TO GO BACK TO SLEEP. WILL CONTINUE TO OBSERVE PATIENT.
[2022-08-22] VITALS: BP 143/79
--- NOTE | 2022-08-22 02:00 | NUR ---
LOOKED IN ON PATIENT. PATIENT WAS SLEEPING, LYING SUPINE. BREATHING WAS NORMAL WITH SYMMETRICAL RISE AND FALL OF CHEST. THERE WERE NO FLUIDS RUNNING; BED WAS IN LOWEST POSITION, WHEELS LOCKED, CALL LIGHT IN PLACE. WILL CONTINUE TO OBSERVE PATIENT.
[2022-08-22 04:00] VITALS: BP 134/62
--- NOTE | 2022-08-22 04:30 | NUR ---
OBTAINED PATIENT'S 0400 VITALS. VITALS WERE: TEMP 96.8, HR 57, BP 134/62, O2 98, RR 18. PATIENT WAS SITTING UP IN BED WITH FEET DANGLING OVER SIDE TOUCHING THE GROUND. PATIENT ASKED ABOUT HIS HR, I INFORMED HIM THAT IT WAS 57; HE STATED THAT SOUNDED MORE NORMAL FOR HIM. PATIENT STATED THAT HE OFTEN RUNS LOW BUT NEVER IN THE LOW 40'S. ASKED PATIENT IF HE NEEDED ANYTHING, PATIENT SAID NO, BUT HE WAS GOING TO STAY UP. I TOLD PATIENT THAT WAS FINE AND TO CALL IF HE NEEDED ANYTHING.
[2022-08-22 07:18] LABS: BASOPHILS # (AUTO) 0.1 K/uL (0.00-0.22); EOSINOPHILS # (AUTO) 0.2 K/uL (0-0.4); HEMATOCRIT 43.8 % (36-52); LYMPHOCYTES # (AUTO) 3.5 K/uL (2.0-11.5); LYMPHOCYTES % (AUTO) 43.8 % (20.5-51.1); MEAN CORPUSCULAR HEMOGLOBIN 28 pg (27-31); MEAN CORPUSCULAR HGB CONC 34 g/dL (33-37); MEAN CORPUSCULAR VOLUME 83.1 fL (80-94); MONOCYTES # (AUTO) 0.4 K/uL (0.8-1.0); MONOCYTES % (AUTO) 5.1 % (1.7-9.3); NEUTROPHILS # (AUTO) 3.7 K/uL (1.8-7.7); NEUTROPHILS % (AUTO) 47.1 % (42.2-75.2); PLATELET COUNT (AUTO) 297 K/uL (140-450); RED BLOOD CELL COUNT(AUTO) 5.28 MIL/uL (4.20-6.10); RED CELL DISTRIBUTION WIDTH 13.2 % (11.6-13.7); WHITE BLOOD COUNT (AUTO) 7.9 K/uL (4.8-10.8)
--- NOTE | 2022-08-22 07:25 | NUR ---
RECEIVED REPORT FROM CORPORATE TRAVEL COORDINATOR NURSE HANNAH FOR CONTINUITY OF CARE. PATIENT AWAKE NO DISTRESS NOTED AMBULATED TO TOILET WITHOUT CALLING FOR ASSISTANCE. INSTRUCTED TO CALL FOR ASSISTANCE. RESPIRATION EVEN AND NOT LABORED NO SHORTNESS OF BREATH ON ROOM AIR. IV SITE ON LEFT AC GENET 20 SALINE LOCK. ALL SAFETY MEASURE IN PLACE.
[2022-08-22 07:26] LABS: ANION GAP 12.9 (8-16); CARBON DIOXIDE 28.4 mmol/L (21-32); CREATININE 1.3 mg/dL (0.6-1.3); POTASSIUM 4.3 mmol/L (3.5-5.1)
--- NOTE | 2022-08-22 07:30 | NUR ---
ENDORSED TO DAY SHIFT NURSE DINA FOR CONTINUITY OF CARE. PATIENT IS STABLE.
[2022-08-22 08:00] VITALS: BP 154/53
[2022-08-22] MEDS: metFORMIN 500 MG TAB PO SCH ×2 (08:00→17:06)
--- NOTE | 2022-08-22 08:45 | NUR ---
SEEN BY DR. ISAAC AT BED SIDE.
[2022-08-22] MEDS: ASPIRIN 81 MG TAB.CHEW PO SCH (09:09)
--- NOTE | 2022-08-22 09:12 | NUR ---
PASTIENT JUST FINISH EATING HIS BREAKFAST GIVEN HIS DUE MEDICATION TOLERATED WELL.
--- NOTE | 2022-08-22 11:00 | NUR ---
DC PLANNING SW MET WITH PATIENT AT BEDSIDE TO COMPLETE ASSESSMENT. PATIENT REPORTS RESIDING IN A SINGLE STORY HOME WITH HIS DAUGHTER AND FAMILY. PATIENT IDENTIFIED JULISSA WOODALL, DAUGHTER, , EMERGENCY CONTACT AND MDM. PATIENT DENIED HAVING AD IN PLACE AND DECLINED AD OFFERED BY JENNIFER. PATIENT REPORTS MEETING WITH PCP, DR. BUTLER, REGULARLY, LAST VISIT 1 MONTH AGO. PATEIN REPORTS MEDICATION COMPLIANCE AND DENIES BARRIERS IN ACCESS TO NEEDED MEDICATIONS. PATIENT REPORTS PICKING UP MEDIATION FROM [facility] IN [place], WHEN NEEDED. PATIENT REPORTS BEING INDEPENDENT IN ALL ACTIVITIES AND DENIES USE OF DME. PATIENT REPORTS MENTAL HEALTH HX OF DEPRESSION, PATIENT REPORTS MEETING WITH A THERAPIST IN THE PAST HOWEVER, STOPPED. PATIENT REPOTS DEPRESSION IS WELL MANAGED. PATIENT REPORTS SUBSTANCE USE HX OF COCAINE. PATIENT REPORTS RECREATIONAL USE HOWEVER, REPORTS THAT HE HAS NOT USED IN 3YRS. PATIENT DECLINED SUBSTANCE USE RESOURCES HE REPORTS THAT SUBSTANCE USE IS NO LONGER AN ISSUE. PATIENT REPORTS HX ALCOHOL USE. PATIENT REPORTS THAT HE PREVIOUSLY DRANK EVERY SINGLE WEEK HOWEVER, PATIENT REPORTS HE HAS NOT HAD ALCOHOL IN 8 YRS. PATIENT REPORTS STRONG YARSANISM TIES AND REPORTED THAT AIDED IN HIS RECOVERY. PATIENT REPORTS ADEQUATE FOOD SOURCE HOWEVER, REQUESTED JAMIE [employer] RESOURCES. 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 PATIENT REPORTS THAT HIS FAMILY IN [place] HEAVILY RELIES ON HIS INCOME AND PLACES GREAT IMPORTANCE ON HIS HEALTH. PT REPORTS ADEQUATE FAMILY AND YARSANISM SUPPORTS. DC PLAN IS FOR PATIENT TO RETURN HOME WITH HIS DAUGHTER PROVIDING TRANSPORTATION, WHEN MEDICALLY STABLE.
--- NOTE | 2022-08-22 11:58 | NUR ---
PATIENT ON STABLE CONDITION SITTING AT THE EDGE OF HIS TABLE USING HIS PHONE. CALL LIGHT WITH IN EASY REACH. NO DISTRESS NOTED.
[2022-08-22 12:00] VITALS: BP 120/69
[2022-08-22] MEDS: ISOSORBIDE MONONITRATE 30 MG TABER PO SCH (14:59)
[2022-08-22] MEDS: lisinopriL 10 MG TAB PO SCH (14:59)
--- NOTE | 2022-08-22 15:05 | NUR ---
PATIENT GIVEN HIS NEW ORDER OF IMDUR AND ZESTRIL MEDICATION TOLERATED WELL. DENIES ANY CHEST PAIN OR DISCOMFORT. WATCH ON HIS PHONE.
[2022-08-22 16:00] VITALS: BP 112/66
--- NOTE | 2022-08-22 16:04 | NUR ---
PATIENT HAS BEEN SCREENED AND CATEGORIZED LOW NUTRITION RISK. PATIENT WILL BE SEEN WITHIN 7 DAYS OF ADMISSION. 08/28/22 REFERRAL FOR DIARRHEA OVER THREE DAYS NOT APPLICABLE; PT REPORTED NO DIARRHEA OVER THREE DAYS UPON RD VISIT, ~100% PO INTAKE WITH NO GI SYMPTOMS PER PT CARL NUNEZ RD
--- NOTE | 2022-08-22 17:50 | NUR ---
ON BED RESTING WATCHING IN HIS PHONE. CALL LIGHT WITHIN EASY REACH. NO DISTRESS NOTED. NO CGEST PAIN NOTED.
--- NOTE | 2022-08-22 18:34 | NUR ---
PATIENT ON HIS BED EATING DINNER NO DISTRESS NOTED. CALL LIGHT WITH IN EASY REACH.
--- NOTE | 2022-08-22 19:20 | NUR ---
GAVE REPORT TO CORE FITTER NURSE BLAS FOR CONTINUITY OF CARE.
--- NOTE | 2022-08-22 19:25 | NUR ---
RECEIVED PT FROM AM NURSE FOR CONTINUITY OF CARE.PT IS STABLE
[2022-08-22 20:00] VITALS: BP 86/44
--- NOTE | 2022-08-22 22:00 | NUR ---
MESSAGED DR MICHELLE REGARDING PT'S LOW BP, MD ORDERED BOLUS OF 2L NS, EKG AND TROPONIN. ORDER NOTED AND CARRIED OUT
--- NOTE | 2022-08-22 22:43 | NUR ---
EKG PERFORMED AND REPORTED TO RN EKG PLACED IN CHART COPY HANDED TO RN
[2022-08-23] VITALS: BP 102/54
--- NOTE | 2022-08-23 02:00 | NUR ---
PATIENT ASLEEP,BREATHING EVEN AND UNLABORED,NO DISTRESS NOTED
[2022-08-23 04:00] VITALS: BP 105/52
[2022-08-23 07:02] LABS: BASOPHILS # (AUTO) 0.1 K/uL (0.00-0.22); BASOPHILS % (AUTO) 0.6 % (0.0-2.0); EOSINOPHILS # (AUTO) 0.2 K/uL (0-0.4); EOSINOPHILS % (AUTO) 2.4 % (0.0-4.0); HEMATOCRIT 40.2 % (36-52); HEMOGLOBIN 13.6 g/dL (12.0-18.0); LYMPHOCYTES # (AUTO) 3.5 K/uL (2.0-11.5); LYMPHOCYTES % (AUTO) 38.9 % (20.5-51.1); MEAN CORPUSCULAR HEMOGLOBIN 28 pg (27-31); MEAN CORPUSCULAR HGB CONC 34 g/dL (33-37); MEAN CORPUSCULAR VOLUME 83.8 fL (80-94); MONOCYTES # (AUTO) 0.5 K/uL (0.8-1.0); MONOCYTES % (AUTO) 5.3 % (1.7-9.3); NEUTROPHILS # (AUTO) 4.8 K/uL (1.8-7.7); NEUTROPHILS % (AUTO) 52.8 % (42.2-75.2); PLATELET COUNT (AUTO) 270 K/uL (140-450); RED CELL DISTRIBUTION WIDTH 13.4 % (11.6-13.7)
[2022-08-23 07:07] LABS: ANION GAP 12.4 (8-16); CARBON DIOXIDE 28.2 mmol/L (21-32); CREATININE 1.4 mg/dL (0.6-1.3); POTASSIUM 4.6 mmol/L (3.5-5.1)
--- NOTE | 2022-08-23 07:38 | NUR ---
ENDORSED PT TO AM NURSE . PT IS STABLE
--- NOTE | 2022-08-23 07:53 | NUR ---
Patient is awake, alert and oriented, able to verbalize needs. Vitals stable, denies pain and remains in bed with no further needs.
[2022-08-23 08:00] VITALS: BP 121/66
[2022-08-23] MEDS ORDERED: ATORVASTATIN 20 MG TAB PO SCH (09:00)
[2022-08-23] MEDS ORDERED: LISI-486 PO (10:03)
[2022-08-23] MEDS ORDERED: ATOR20TA PO (10:03)
[2022-08-23] MEDS: lisinopriL 10 MG TAB PO SCH (10:56)
[2022-08-23] MEDS: ASPIRIN 81 MG TAB.CHEW PO SCH (10:56)
[2022-08-23] MEDS: ISOSORBIDE MONONITRATE 30 MG TABER PO SCH (10:57)
[2022-08-23] MEDS: metFORMIN 500 MG TAB PO SCH (10:58)
--- NOTE | 2022-08-23 12:47 | NUR ---
Patient discharged and was given education on medications, disease process and patient verbalized understanding.
== END 2022-08-23 11:50 | disposition home or self-care (01) | DRG 392 ==
LOC: MED 09:54 → MTU 13:46
PROVIDERS: ADMIT Family Medicine; ATTEND Family Medicine
DX: K21.9 Gastro-esophageal reflux disease without esophagitis (principal); R07.89 Other chest pain; I10 Essential (primary) hypertension; G47.33 Obstructive sleep apnea (adult) (pediatric); Z20.822 Contact with and (suspected) exposure to COVID-19; E11.9 Type 2 diabetes mellitus without complications; E78.5 Hyperlipidemia, unspecified; I25.2 Old myocardial infarction; Z88.0 Allergy status to penicillin; Z87.11 Personal history of peptic ulcer disease; Z90.49 Acquired absence of other specified parts of digestive tract
CPT/HCPCS: 36415; 71045; 80048; 80053; 83735; 83880; 84484; 85025; 85379; 87081; 93005; 96374; 99285; J2270; J2405; Q0092

== ENCOUNTER 2023-04-12 12:15 | Inpatient (IN) | payer OTHER ==
[~2023-04-12] VITALS: Ht 175.3 cm; Wt 98.4 kg
[~2023-04-12 12:15] MED LIST changes: +ASPI-1822 PO; +ATOR20TA PO; -CARV3.12 PO; +FISH100053 PO; -LIP80 PO; +LISI-486 PO; +LORA10TA19 PO; -METH-1866 PO; -NITR0.4T1 SL; -TRI48 PO; -VITB12 PO; -ZINC50TA76 PO
[2023-04-12 12:18] VITALS: BP 140/112
[2023-04-12] MEDS ORDERED: HYDROcodone/APAP 5/325 MG 1 TAB TAB PO ONE (12:40)
--- NOTE | 2023-04-12 12:47 | NUR ---
LAB AT BEDSIDE
[2023-04-12 13:47] LABS: BASOPHILS % (AUTO) 0.5 % (0.0-2.0); EOSINOPHILS # (AUTO) 0.2 K/uL (0-0.4); EOSINOPHILS % (AUTO) 2.9 % (0.0-4.0); HEMATOCRIT 39.4 % (36-52); HEMOGLOBIN 13.3 g/dL (12.0-18.0); LYMPHOCYTES # (AUTO) 2.9 K/uL (2.0-11.5); LYMPHOCYTES % (AUTO) 42.5 % (20.5-51.1); MEAN CORPUSCULAR HEMOGLOBIN 29 pg (27-31); MEAN CORPUSCULAR HGB CONC 34 g/dL (33-37); MEAN CORPUSCULAR VOLUME 85.4 fL (80-94); MONOCYTES # (AUTO) 0.4 K/uL (0.8-1.0); MONOCYTES % (AUTO) 6.5 % (1.7-9.3); NEUTROPHILS # (AUTO) 3.2 K/uL (1.8-7.7); NEUTROPHILS % (AUTO) 47.6 % (42.2-75.2); PLATELET COUNT (AUTO) 264 K/uL (140-450); RED BLOOD CELL COUNT(AUTO) 4.62 MIL/uL (4.20-6.10); RED CELL DISTRIBUTION WIDTH 13.3 % (11.6-13.7); WHITE BLOOD COUNT (AUTO) 6.8 K/uL (4.8-10.8)
[2023-04-12 14:30] LABS: ALBUMIN 3.7 g/dL (3.4-5.0); ANION GAP 11.7 (8-16); CARBON DIOXIDE 27.3 mmol/L (21-32); CREATININE 1.6 mg/dL (0.6-1.3); TOTAL BILIRUBIN 0.6 mg/dL (0.0-1.0)
[2023-04-12] MEDS ORDERED: NACL 0.9% 1,000 ML IV ONE (14:40)
--- NOTE | 2023-04-12 16:07 | NUR ---
RETURNED FROM CT, "BEBE PAIN FOR A YEAR"
[2023-04-12] MEDS ORDERED: ASPIRIN 325 MG TAB PO ONE ×2 (17:50→19:10)
[2023-04-12] MEDS ORDERED: RANO500T7 PO (18:12)
[2023-04-12] MEDS ORDERED: CLOP75TA55 PO (18:12)
--- NOTE | 2023-04-12 18:22 | NUR ---
STILL HAS INTERMITTENT CP. AMBULATES TO BR TO VOID URINE. TOLERATED PO WATER WITH ASA. DR VELÁSQUEZ AT BEDSIDE, PT AWARE OF ADMISSION
[2023-04-12] MEDS ORDERED: HYDROcodone/APAP 7.5/325 MG 1 TAB PO PRN (19:10)
[2023-04-12] MEDS ORDERED: ZOLPIDEM 5 MG TAB PO PRN (19:10)
[2023-04-12] MEDS ORDERED: DEXTROSE 50% 50 ML SYR IVP PRN (19:10)
[2023-04-12] MEDS ORDERED: ONDANSETRON 4 MG/2 ML VIAL IM/IVP PRN (19:10)
[2023-04-12] MEDS ORDERED: DOCUSATE SODIUM 100 MG GELCAP PO PRN (19:10)
[2023-04-12] MEDS ORDERED: ACETAMINOPHEN 325 MG TAB PO PRN (19:10)
[2023-04-12] MEDS ORDERED: guaiFENesin DM 200/20 MG-10 ML 10 ML UDC PO PRN (19:10)
[2023-04-12] MEDS ORDERED: POTASSIUM CHLORIDE 10 MEQ TABER PO PRN (19:10)
[2023-04-12 19:39] LABS: CHOL/HDL RATIO 3.3 (1-4.5); FREE T4 (FREE THYROXINE) 0.8 ng/dL (0.76-1.46); MAGNESIUM 2.1 mg/dL (1.8-2.4); PHOSPHORUS 2.6 mg/dL (2.5-4.9); THYROID STIMULATING HORMONE 2.56 uIU/mL (0.34-3.74)
--- NOTE | 2023-04-12 19:47 | NUR ---
Patient will be admitted to care of [facility]. Admited to TELE. Will go to [id number]. Belongings list completed. Report to FER UGALDE.
--- NOTE | 2023-04-12 19:52 | NUR ---
PT WAS ADMITTED TO [facility] DEPARTMENT FROM ER [facility]IA [facility] WITH DIAGNOSIS OF CHEST PAIN. PT IS AOX4, AMBULATORY, ABLE TO VERBALIZE NEEDS AND ABLE TO FOLLOW COMMANDS. PT IS ON ROOM AIR AND ON CARDIAC DIET. PT HAS IV RIGHT UPPER ARM GAUGE 20 SALINE LOCK. PT SKIN IS INTACT. NO COMPLAIN OF PAIN AT THIS TIME. NO S/S OF RESPIRATORY DISTRESS NOTED. PT WAS ORIENTED TO ROOM/HOSPITA, ALL SAFETY MEASURES IMPLEMENTED. BED IN LOW POSITION, BED WHEELS ON LOCK AND CALL LIGHT WITHIN REACH.
[2023-04-12] MEDS: NACL 0.9% 1,000 ML IV SCH (20:00)
[2023-04-12 20:10] LABS: PROTHROMBIN TIME 9.5 secs (10.8-13.4)
[2023-04-12] MEDS: BLOOD GLUCOSE MONITORING 1 DEV DEV FS SCH (20:49)
[2023-04-12] MEDS: INSULIN LISPRO SLIDING SCALE 100 UNITS/ML VIAL SUBQ PRN (20:51)
--- NOTE | 2023-04-12 20:51 | NUR ---
PT BLOOD GLUCOSE IS 166. HUMALOG INSULIN 2 UNITS WAS GIVEN TO PT PER MD ORDER. METFORMIN WAS NOT GIVEN DUE TO CONTRAST WAS GIVEN TO PT. ALL SAFETY MEASURES IMPLEMENTED. BED IN LOW POSITION, BED WHEELS ON LOCK AND CALL LIGHT WITHIN REACH.
[2023-04-12] MEDS: metFORMIN 500 MG TAB PO SCH (21:00)
--- NOTE | 2023-04-12 22:00 | NUR ---
PUT 2L NC TO PT DUE TO PT USES CPAP AT HOME. NO COMPLAIN OF PAIN AT THIS TIME. NO S/S OF RESPIRATORY DISTRESS NOTED. ALL SAFETY MEASURES IMPLEMENTED. BED IN LOW POSITION, BED WHEELS ON LOCK AND CALL LIGHT WITHIN REACH.
[2023-04-13] VITALS: BP 108/48
--- NOTE | 2023-04-13 | NUR ---
PT IS ON SLEEP. CHEST RISE AND FALL SYMMETRICALLY NOTED. RESPIRATION IS EVEN AND UNLABORED. ALL SAFETY MEASURES IMPLEMENTED. BED IN LOW POSITION, BED WHEELS ON LOCK AND CALL LIGHT WITHIN REACH.
--- NOTE | 2023-04-13 02:00 | NUR ---
CHECKED THE PT, STILL ON SLEEP. CHEST RISE AND FALL SYMMETRICALLY NOTED. RESPIRATION IS EVEN AND UNLABORED. ALL SAFETY MEASURES IMPLEMENTED. BED IN LOW POSITION, BED WHEELS ON LOCK AND CALL LIGHT WITHIN REACH.
[2023-04-13 03:01] LABS: APPEARANCE,URINE CLEAR (CLEAR); BILIRUBIN,URINE NEGATIVE (NEGATIVE); BLOOD, URINE TRACE-I (NEGATIVE); COLOR,URINE YELLOW (YELLOW); LEUKOCYTE ESTERASE ,URINE NEGATIVE (NEGATIVE); NITRITE, URINE NEGATIVE (NEGATIVE); UGLUCOSE NEGATIVE (NEGATIVE)
[2023-04-13 03:10] LABS: RBC,URINE 0-5 /HPF (0-5)
[2023-04-13 03:11] LABS: BARBITURATE, URINE NEGATIVE ng/ml (NEG <=200); BENZODIAZEPINE, URINE NEGATIVE ng/mL (NEG <=200); CANNABINOID, URINE NEGATIVE ng/mL (NEG <=50); COCAINE, URINE NEGATIVE ng/mL (NEG <=300); OPIATE, URINE POSITIVE ng/mL (NEG <=2000); PHENCYCLIDINE SCREEN,URINE NEGATIVE ng/mL (NEG <=25)
[2023-04-13 04:00] VITALS: BP 113/60
--- NOTE | 2023-04-13 04:00 | NUR ---
PT WAS GIVEN WARM BLANKET. NO COMPLAIN OF PAIN AT THIS TIME. NO S/S OF RESPIRATORY DISTRESS NOTED. ALL SAFETY MEASURES IMPLEMENTED. BED IN LOW POSITION, BED WHEELS ON LOCK AND CALL LIGHT WITHIN REACH.
[2023-04-13 06:12] LABS: BASOPHILS % (AUTO) 0.7 % (0.0-2.0); EOSINOPHILS # (AUTO) 0.3 K/uL (0-0.4); EOSINOPHILS % (AUTO) 4.5 % (0.0-4.0); HEMATOCRIT 37.5 % (36-52); HEMOGLOBIN 12.5 g/dL (12.0-18.0); LYMPHOCYTES # (AUTO) 2.8 K/uL (2.0-11.5); LYMPHOCYTES % (AUTO) 45.3 % (20.5-51.1); MEAN CORPUSCULAR HEMOGLOBIN 28 pg (27-31); MEAN CORPUSCULAR HGB CONC 33 g/dL (33-37); MEAN CORPUSCULAR VOLUME 84.9 fL (80-94); MONOCYTES # (AUTO) 0.5 K/uL (0.8-1.0); MONOCYTES % (AUTO) 7.2 % (1.7-9.3); NEUTROPHILS # (AUTO) 2.7 K/uL (1.8-7.7); NEUTROPHILS % (AUTO) 42.3 % (42.2-75.2); PLATELET COUNT (AUTO) 249 K/uL (140-450); RED BLOOD CELL COUNT(AUTO) 4.42 MIL/uL (4.20-6.10); RED CELL DISTRIBUTION WIDTH 13.6 % (11.6-13.7); WHITE BLOOD COUNT (AUTO) 6.3 K/uL (4.8-10.8)
[2023-04-13 06:27] LABS: ANION GAP 10.9 (8-16); CARBON DIOXIDE 28.9 mmol/L (21-32); CREATININE 1.3 mg/dL (0.6-1.3); POTASSIUM 4.8 mmol/L (3.5-5.1)
[2023-04-13] MEDS: BLOOD GLUCOSE MONITORING 1 DEV DEV FS SCH ×3 (06:44→16:31)
[2023-04-13] MEDS: INSULIN LISPRO SLIDING SCALE 100 UNITS/ML VIAL SUBQ PRN (06:44)
--- NOTE | 2023-04-13 06:44 | NUR ---
PT BLOOD GLUCOSE IS 164. HUMALOG INSULIN 2 UNITS WAS GIVEN TO PT. ALL SAFETY MEASURES IMPLEMENTED. BED IN LOW POSITION, BED WHEELS ON LOCK AND CALL LIGHT WITHIN REACH.
--- NOTE | 2023-04-13 07:21 | NUR ---
PT IS STABLE. ENDORSED PT TO MORNING SHIFT NURSE FOR CONTINUITY OF CARE.
[2023-04-13 08:00] VITALS: BP 119/56
--- NOTE | 2023-04-13 08:00 | NUR ---
RECEIVED PT AWAKE, ALERT AND ORIENTED, SEATED ON THE BED WITH IV LINE NOTED ON THE RIGHT UPPER ARM G. 20 WITH NS AT 60ML/HR INFUSING, PT IS ON ROOM AIR AND DENIES CHEST PAIN AT THIS TIME.
--- NOTE | 2023-04-13 08:37 | NUR ---
DR. MARRUFO AND THE MEDICAL STUDENTS MADE THE ROUNDS, DR HALL TALKED TO PT AND STATED THE PLAN OF CARE AND PT VERBALIZED UNDERSTANDING. SAID THAT HE WILL ORDER AN ECHOCARDIOGRAM FOR PT .
[2023-04-13] MEDS: metFORMIN 500 MG TAB PO SCH (08:48)
--- NOTE | 2023-04-13 08:48 | NUR ---
PT WAS GIVEN TYHE SCHEDULED AM MEDICATIONS NOW, AND THEN PT AMBULATED TO THE BATHROOM, STEADY GAIT.
--- NOTE | 2023-04-13 08:54 | NUR ---
PATIENT HAS BEEN SCREENED AND CATEGORIZED LOW NUTRITION RISK. PATIENT WILL BE SEEN WITHIN 7 DAYS OF ADMISSION. 04/19/[address]
[2023-04-13] MEDS ORDERED: lisinopriL 10 MG TAB PO SCH (09:00)
[2023-04-13] MEDS ORDERED: PANTOPRAZOLE 40 MG TABEC PO SCH (09:00)
[2023-04-13] MEDS ORDERED: ATORVASTATIN 20 MG TAB PO SCH (09:00)
[2023-04-13] MEDS ORDERED: ASPIRIN 81 MG TAB.CHEW PO SCH (09:00)
[2023-04-13] MEDS ORDERED: CLOPIDOGREL 75 MG TAB PO SCH (09:00)
--- NOTE | 2023-04-13 11:07 | NUR ---
BLOOD GLUCOSE CHECK WAS DONE TO PT RESULT IS 144, NO INSULIN COVERAGE NEEDED.
[2023-04-13] MEDS: NACL 0.9% 1,000 ML IV SCH (11:50)
[2023-04-13 12:00] VITALS: BP 123/58
--- NOTE | 2023-04-13 13:20 | NUR ---
ECHOCARDIOGRAM IS BEING DONE TO PT NOW.
--- NOTE | 2023-04-13 13:48 | NUR ---
PT COMPLAINED OF A HEADACHE AND WAS MEDICATED NOW WITH TYLENOL
--- NOTE | 2023-04-13 15:50 | NUR ---
DC PLANNING 67 Y.O MALE PATIENT ADMITTED FOR CHEST PAIN 05/15 IN SEVERITY RADIATING TO CHEST AND TO THE BACK.PATIENT HAS PMH OF HTN,HLD,DM,PRIOR ME X 11 YEARS AGO WITHOUT STENT PLACEMENT.EKG DONE IN ED.TROPONIN LEVELS NOT HIGH. ASA GIVEN. CT/PULMO ANGIO (-) FOR P.E.CXR (-).MEDS:PLAVIX,LISINOPRIL,METFORMIN,AND HUMALOG SLIDING SCALE.DC PLAN - DC HOME ONCE PATIENT RESPONDS TO TREATMENT.CM TO FOLLOW.
[2023-04-13 16:00] VITALS: BP 106/53
--- NOTE | 2023-04-13 18:30 | NUR ---
DISCHARGED PT TO HOME, PT WILL BE DRIVING BY HIMSELF, CAR IS IN ER PARKING, INSTRUCTIONS GIVEN TO PT AND VERBALIZED UNDERSTANDING, IV LINE REMOVED , PT DENIES PAIN AD IS STABLE AT THIS TIME.
== END 2023-04-13 18:14 | disposition home or self-care (01) | DRG 391 ==
LOC: MED 12:15 → MTU 18:51
PROVIDERS: ADMIT Family Medicine; ATTEND Family Medicine
DX: K21.9 Gastro-esophageal reflux disease without esophagitis (principal); N17.0 Acute kidney failure with tubular necrosis; I13.0 Hypertensive heart and chronic kidney disease with heart failure and stage 1 through stage 4 chronic kidney disease, or unspecified chronic kidney disease; I20.9 Angina pectoris, unspecified; E78.1 Pure hyperglyceridemia; Z90.49 Acquired absence of other specified parts of digestive tract; Z20.822 Contact with and (suspected) exposure to COVID-19; R00.1 Bradycardia, unspecified; K27.9 Peptic ulcer, site unspecified, unspecified as acute or chronic, without hemorrhage or perforation; E11.22 Type 2 diabetes mellitus with diabetic chronic kidney disease; N18.31 Chronic kidney disease, stage 3a; Z87.891 Personal history of nicotine dependence; Z88.0 Allergy status to penicillin
CPT/HCPCS: 36415; 71045; 71275; 80048; 80053; 80305; 81001; 82150; 82948; 83036; 83690; 83735; 83880; 84100; 84436; 84439; 84443; 84479; 84484; 85025; 85610; 85730; 87081; 93005; 96360; 99285; Q0092; Q9967

== ENCOUNTER 2023-10-01 10:52 | Observation (INO) | payer OTHER ==
[~2023-10-01] VITALS: Ht 160 cm; Wt 99.8 kg
[~2023-10-01 10:52] MED LIST changes: +CLOP75TA55 PO; +RANO500T7 PO
[2023-10-01 10:54] VITALS: BP 118/80; PULSE 74; RESP 18; TEMP 97; O2SAT 97
[2023-10-01] MEDS ORDERED: KETOROLAC 60 MG/2 ML VIAL IM ONE (11:15)
[2023-10-01 11:30] LABS: BASOPHILS # (AUTO) 0.1 K/uL (0.00-0.22); EOSINOPHILS # (AUTO) 0.2 K/uL (0-0.4); EOSINOPHILS % (AUTO) 2.1 % (0.0-4.0); HEMATOCRIT 41.8 % (36-52); HEMOGLOBIN 13.9 g/dL (12.0-18.0); LYMPHOCYTES # (AUTO) 3.8 K/uL (2.0-11.5); LYMPHOCYTES % (AUTO) 33.9 % (20.5-51.1); MEAN CORPUSCULAR HEMOGLOBIN 28 pg (27-31); MEAN CORPUSCULAR HGB CONC 33 g/dL (33-37); MEAN CORPUSCULAR VOLUME 84.8 fL (80-94); MONOCYTES # (AUTO) 0.8 K/uL (0.8-1.0); NEUTROPHILS # (AUTO) 6.2 K/uL (1.8-7.7); PLATELET COUNT (AUTO) 264 K/uL (140-450); RED BLOOD CELL COUNT(AUTO) 4.93 MIL/uL (4.20-6.10); RED CELL DISTRIBUTION WIDTH 13.2 % (11.6-13.7); WHITE BLOOD COUNT (AUTO) 11.1 K/uL (4.8-10.8)
[2023-10-01 12:06] LABS: ALBUMIN 3.5 g/dL (3.4-5.0); ANION GAP 13.5 (8-16); CARBON DIOXIDE 27.6 mmol/L (21-32); CREATININE 1.7 mg/dL (0.6-1.3); POTASSIUM 5.1 mmol/L (3.5-5.1); TOTAL BILIRUBIN 0.5 mg/dL (0.0-1.0); TOTAL PROTEIN, SERUM 7.5 g/dL (6.4-8.2)
[2023-10-01] MEDS ORDERED: MORPHINE SULFATE 4 MG/ML SYR IVP ONE (13:10)
[2023-10-01] MEDS ORDERED: ATOR40TA40 PO (13:37)
[2023-10-01] MEDS ORDERED: ASPI-1856 PO (13:37)
[2023-10-01] MEDS ORDERED: [UNRECOGNIZED DRUG - CODE] PO (13:37)
[2023-10-01] MEDS ORDERED: LISI20TA29 PO (13:37)
[2023-10-01 13:43] VITALS: O2SAT 97
[2023-10-01 15:50] VITALS: O2SAT 98
[2023-10-01] MEDS ORDERED: ACETAMINOPHEN 325 MG TAB PO PRN (16:55)
[2023-10-01] MEDS ORDERED: LORazepam 1 MG TAB PO PRN (16:55)
[2023-10-01] MEDS ORDERED: ZOLPIDEM 5 MG TAB PO PRN (16:55)
[2023-10-01] MEDS ORDERED: NITROGLYCERIN 0.4 MG TAB SL PRN (16:55)
[2023-10-01 21:00] VITALS: BP 110/56; PULSE 59; PULSE 65; RESP 18; TEMP 97.6; O2SAT 97
[2023-10-01] MEDS ORDERED: SODIUM CHLORIDE FLUSH 10 ML SYR IVF SCH (21:00)
[2023-10-01 23:00] VITALS: PULSE 89; RESP 21; O2SAT 98
[2023-10-02] VITALS: BP 100/55; PULSE 60; PULSE 63; RESP 18; TEMP 98.8; O2SAT 98
[2023-10-02 04:00] VITALS: BP 95/54; PULSE 54; PULSE 72; RESP 18; TEMP 97.8; O2SAT 96
[2023-10-02 08:00] VITALS: BP 110/69; PULSE 51; PULSE 58; RESP 17; TEMP 98.6; O2SAT 96
[2023-10-02 09:48] LABS: AMPHETAMINE, URINE NEGATIVE ng/ml (NEG <=1000); BARBITURATE, URINE NEGATIVE ng/ml (NEG <=200); CANNABINOID, URINE NEGATIVE ng/mL (NEG <=50); COCAINE, URINE POSITIVE ng/mL (NEG <=300); OPIATE, URINE POSITIVE ng/mL (NEG <=2000); PHENCYCLIDINE SCREEN,URINE NEGATIVE ng/mL (NEG <=25)
[2023-10-02 09:49] LABS: BENZODIAZEPINE, URINE NEGATIVE ng/mL (NEG <=200)
[2023-10-02 12:00] VITALS: BP 134/67; PULSE 65; PULSE 67; RESP 19; TEMP 98.5; O2SAT 99
[2023-10-03] MEDS ORDERED: ECOTRIN 81 MG TABEC PO SCH (09:00)
[2023-10-03] MEDS ORDERED: lisinopriL 10 MG TAB PO SCH (09:00)
[2023-10-03] MEDS ORDERED: ATORVASTATIN 20 MG TAB PO SCH (09:00)
== END 2023-10-02 15:25 | disposition home or self-care (01) ==
LOC: MED 10:52 → MTU 16:51
PROVIDERS: ADMIT Hospitalist; ATTEND Hospitalist
DX: R07.89 Other chest pain (principal); I10 Essential (primary) hypertension; E78.5 Hyperlipidemia, unspecified; E11.9 Type 2 diabetes mellitus without complications; I25.10 Atherosclerotic heart disease of native coronary artery without angina pectoris; K27.9 Peptic ulcer, site unspecified, unspecified as acute or chronic, without hemorrhage or perforation; F14.10 Cocaine abuse, uncomplicated; Z79.82 Long term (current) use of aspirin; Z87.11 Personal history of peptic ulcer disease; Z87.891 Personal history of nicotine dependence; Z79.899 Other long term (current) drug therapy; Z88.0 Allergy status to penicillin
CPT/HCPCS: 36415; 71045; 80053; 80305; 83735; 83880; 84484; 85025; 87081; 93005; 96372; 96374; 99285; G0378; J1885; J2270

== ENCOUNTER 2023-11-28 00:53 | Inpatient (IN) | payer OTHER ==
[~2023-11-28] VITALS: Ht 175.3 cm; Wt 99.8 kg
[~2023-11-28 00:53] MED LIST changes: -ASPI-1822 PO; +ASPI-1856 PO; -ATOR20TA PO; +ATOR40TA40 PO; -RANO500T7 PO; +[UNRECOGNIZED DRUG - CODE] PO
[2023-11-28 01:06] VITALS: BP 91/47; PULSE 94; RESP 18; TEMP 97.8; O2SAT 98
[2023-11-28 01:59] LABS: BASOPHILS # (AUTO) 0.1 K/uL (0.00-0.22); EOSINOPHILS # (AUTO) 0.2 K/uL (0-0.4); EOSINOPHILS % (AUTO) 2.4 % (0.0-4.0); HEMATOCRIT 37.8 % (36-52); HEMOGLOBIN 12.5 g/dL (12.0-18.0); LYMPHOCYTES # (AUTO) 2.9 K/uL (2.0-11.5); LYMPHOCYTES % (AUTO) 31.7 % (20.5-51.1); MEAN CORPUSCULAR HEMOGLOBIN 29 pg (27-31); MEAN CORPUSCULAR HGB CONC 33 g/dL (33-37); MEAN CORPUSCULAR VOLUME 86.1 fL (80-94); MONOCYTES # (AUTO) 0.8 K/uL (0.8-1.0); MONOCYTES % (AUTO) 8.3 % (1.7-9.3); NEUTROPHILS # (AUTO) 5.3 K/uL (1.8-7.7); NEUTROPHILS % (AUTO) 56.6 % (42.2-75.2); PLATELET COUNT (AUTO) 241 K/uL (140-450); RED BLOOD CELL COUNT(AUTO) 4.39 MIL/uL (4.20-6.10); RED CELL DISTRIBUTION WIDTH 13.6 % (11.6-13.7); WHITE BLOOD COUNT (AUTO) 9.3 K/uL (4.8-10.8)
[2023-11-28 02:21] LABS: CALCIUM 8.6 mg/dL (8.5-10.1); CARBON DIOXIDE 29.2 mmol/L (21-32); CREATININE 2.5 mg/dL (0.6-1.3); POTASSIUM 4.2 mmol/L (3.5-5.1)
[2023-11-28] MEDS ORDERED: CRUSHER, PILL MC ONE (02:37)
[2023-11-28] MEDS: BACLOFEN 10 MG TAB PO SCH (02:47)
[2023-11-28] MEDS: NACL 0.9% 1,000 ML IV ONE ×2 (02:50→05:00)
[2023-11-28] MEDS: MORPHINE SULFATE 2 MG/ML SYR IVP ONE (02:50)
[2023-11-28] MEDS ORDERED: AZITHROMYCIN 500 MG INJ VIAL IV ONE (05:11)
[2023-11-28] MEDS ORDERED: cefTRIAXone 1,000 MG VIAL ONE (05:11)
[2023-11-28 05:23] LABS: LACTIC ACID 0.9 mmol/L (0.4-2.0)
[2023-11-28] MEDS ORDERED: DAPA10TA PO (05:28)
[2023-11-28] MEDS: AZITHROMYCIN 500 MG in DEXTROSE 5% 250 ML IV ONE (05:35)
[2023-11-28] MEDS ORDERED: MORPHINE SULFATE 2 MG/ML SYR IVP PRN (06:15)
[2023-11-28] MEDS ORDERED: ACETAMINOPHEN 325 MG TAB PO PRN (06:15)
[2023-11-28] MEDS ORDERED: HYDROcodone/APAP 5/325 MG 1 TAB TAB PO PRN (06:15)
[2023-11-28] MEDS ORDERED: MAGNESIUM OXIDE 400 MG TAB PO PRN (06:15)
[2023-11-28] MEDS ORDERED: KCL 20 MEQ IN 100 mL PREMIX 200 ML IV PRN (06:15)
[2023-11-28] MEDS ORDERED: POTASSIUM CHLORIDE 10 MEQ TABER PO PRN (06:15)
[2023-11-28] MEDS ORDERED: MAG SULF 2000 MG/WATER PREMIX 50 ML IV PRN (06:15)
[2023-11-28] MEDS ORDERED: DEXTROSE 50% 50 ML SYR IVP PRN (06:25)
[2023-11-28 06:31] LABS: FLU A ANTIGEN negative (NEGATIVE); FLU B ANTIGEN NEGATIVE (NEGATIVE)
[2023-11-28] MEDS: BLOOD GLUCOSE MONITORING 1 DEV DEV FS SCH (07:48)
[2023-11-28] MEDS: ATORVASTATIN 20 MG TAB PO SCH (10:37)
[2023-11-28] MEDS: ASPIRIN 81 MG TAB.CHEW PO SCH (10:37)
[2023-11-28] MEDS: INSULIN LISPRO SLIDING SCALE 100 UNITS/ML VIAL SUBQ PRN (12:39)
[2023-11-28 16:37] VITALS: BP 103/67; PULSE 76; RESP 18; TEMP 98; O2SAT 98
[2023-11-29] MEDS ORDERED: AZITHROMYCIN 500 MG in DEXTROSE 5% 250 ML IV SCH (09:00)
== END 2023-11-28 16:37 | disposition home or self-care (01) | DRG 682 ==
LOC: MED 00:53 → OBSVTOIN 06:21 → MTU 06:21
PROVIDERS: ADMIT Hospitalist; ATTEND Hospitalist
DX: N17.9 Acute kidney failure, unspecified (principal); J18.9 Pneumonia, unspecified organism; K21.9 Gastro-esophageal reflux disease without esophagitis; E78.5 Hyperlipidemia, unspecified; I25.10 Atherosclerotic heart disease of native coronary artery without angina pectoris; I12.9 Hypertensive chronic kidney disease with stage 1 through stage 4 chronic kidney disease, or unspecified chronic kidney disease; Z20.822 Contact with and (suspected) exposure to COVID-19; E11.22 Type 2 diabetes mellitus with diabetic chronic kidney disease; N18.9 Chronic kidney disease, unspecified; Z79.82 Long term (current) use of aspirin; Z79.899 Other long term (current) drug therapy
CPT/HCPCS: 36415; 71045; 71275; 80048; 82948; 83605; 83880; 84484; 85025; 85379; 87040; 93005; 96365; 96367; 99285; J0456; J0696; J1644; J2270; J7060; Q0092; Q9967

== ENCOUNTER 2024-05-06 22:57 | Emergency (ER) | payer OTHER ==
[~2024-05-06] VITALS: Ht 165.1 cm; Wt 99.8 kg
[~2024-05-06 22:57] MED LIST changes: +DAPA10TA PO; -LISI-486 PO; +LISI-951 PO
[2024-05-06 23:18] VITALS: BP 136/74; PULSE 63; RESP 12; TEMP 98; O2SAT 98
[2024-05-06 23:36] VITALS: O2SAT 98
[2024-05-06 23:41] LABS: BASOPHILS # (AUTO) 0.1 K/uL (0.00-0.22); BASOPHILS % (AUTO) 0.7 % (0.0-2.0); EOSINOPHILS # (AUTO) 0.2 K/uL (0-0.4); EOSINOPHILS % (AUTO) 2.6 % (0.0-4.0); HEMATOCRIT 42.1 % (36-52); LYMPHOCYTES # (AUTO) 3.2 K/uL (2.0-11.5); LYMPHOCYTES % (AUTO) 35.1 % (20.5-51.1); MEAN CORPUSCULAR HEMOGLOBIN 28 pg (27-31); MEAN CORPUSCULAR HGB CONC 33 g/dL (33-37); MEAN CORPUSCULAR VOLUME 85.2 fL (80-94); MONOCYTES # (AUTO) 0.7 K/uL (0.8-1.0); MONOCYTES % (AUTO) 7.2 % (1.7-9.3); NEUTROPHILS # (AUTO) 4.9 K/uL (1.8-7.7); NEUTROPHILS % (AUTO) 54.4 % (42.2-75.2); PLATELET COUNT (AUTO) 262 K/uL (140-450); RED BLOOD CELL COUNT(AUTO) 4.94 MIL/uL (4.20-6.10); RED CELL DISTRIBUTION WIDTH 13.6 % (11.6-13.7)
[2024-05-06] MEDS: MORPHINE SULFATE 4 MG/ML SYR IVP ONE (23:44)
[2024-05-06] MEDS: ASPIRIN 325 MG TAB PO ONE (23:44)
[2024-05-06] MEDS: NITROGLYCERIN 2% 1 GM PKT TP ONE (23:45)
[2024-05-06 23:59] LABS: ANION GAP 11.1 (8-16); CALCIUM 8.8 mg/dL (8.5-10.1); CREATININE 1.5 mg/dL (0.6-1.3); POTASSIUM 4.1 mmol/L (3.5-5.1)
[2024-05-07] MEDS: hePARIN / DEXT 5% PREMIX 250 ML IV ONE (00:50)
[2024-05-07] MEDS: MORPHINE SULFATE 4 MG/ML SYR IVP ONE ×2 (00:53→04:02)
[2024-05-07] MEDS: HEPARIN PER PHARMACY MC ONE (01:19)
[2024-05-07 01:27] LABS: INR 0.9 (0.8-1.2); PARTIAL THROMBOPLASTIN TIME 26.3 secs (22-35.6); PROTHROMBIN TIME 9.5 secs (10.8-13.4)
[2024-05-07 03:01] VITALS: O2SAT 99
[2024-05-07 05:22] VITALS: O2SAT 99
[2024-05-07] MEDS ORDERED: hePARIN / DEXT 5% PREMIX 250 ML IV SCH (05:40)
[2024-05-07] MEDS ORDERED: HEPARIN PER PHARMACY MC PRN (08:50)
[2024-05-07] MEDS: hePARIN / DEXT 5% PREMIX 250 ML IV SCH (09:08)
[2024-05-07 10:07] VITALS: BP 127/65; PULSE 47; RESP 16; TEMP 97.8; O2SAT 100
== END 2024-05-07 10:07 | disposition short-term general hospital (02) ==
LOC: MED 22:57
DX: I24.9 Acute ischemic heart disease, unspecified (principal); Z20.822 Contact with and (suspected) exposure to COVID-19; E11.22 Type 2 diabetes mellitus with diabetic chronic kidney disease; I12.9 Hypertensive chronic kidney disease with stage 1 through stage 4 chronic kidney disease, or unspecified chronic kidney disease; N18.9 Chronic kidney disease, unspecified; Z79.899 Other long term (current) drug therapy; Z79.82 Long term (current) use of aspirin; Z79.01 Long term (current) use of anticoagulants; Z88.0 Allergy status to penicillin
CPT/HCPCS: 36415; 71045; 80048; 82948; 83880; 84484; 85025; 85610; 85730; 87426; 93005; 96365; 96366; 96375; 96376; 99291; J1644; J2270; Q0092